=== PATIENT | female | born 1955 | race African-American/Black ===

== ENCOUNTER 2018-07-29 12:34 | Emergency (ER) | payer MEDICARE | END 2018-07-29 13:21 | disposition home or self-care (01) | LOC: ERS 12:34 | DX: H04.321 Acute dacryocystitis of right lacrimal passage (principal); K21.9 Gastro-esophageal reflux disease without esophagitis; I10 Essential (primary) hypertension; M19.90 Unspecified osteoarthritis, unspecified site; E11.9 Type 2 diabetes mellitus without complications; F17.210 Nicotine dependence, cigarettes, uncomplicated; Z86.73 Personal history of transient ischemic attack (TIA), and cerebral infarction without residual deficits | CPT/HCPCS: 99283 ==

== ENCOUNTER 2018-10-12 12:53 | Observation (INO) | payer MEDICARE ==
[2018-10-12 13:52] LABS: #Basophils 0.1 thou/uL (0.0-0.2); #Eosinphils 0.1 thou/uL (0.0-0.7); #Lymphocytes 1.8 thou/uL (1.20-3.40); #Monocytes 0.4 thou/uL (0.11-0.59); #Neutrophils 3.1 thou/uL (1.40-6.50); %Basophils 1.4 % (0.0-1.0); %Lymphocytes 33.2 % (21.0-51.0); %Monocytes 6.9 % (0.0-10.0); %Neutrophils 57.5 % (42.0-75.0); Hemoglobin 14.4 g/dL (12.0-16.0); Mean Corpuscular HGB CONC 32.5 g/dL (32.0-36.0); Mean Corpuscular Hemoglobin 32.7 pg (27.0-31.0); Mean Platelet Volume 7.3 fL (7.4-10.4); Platelet Count 393 thou/uL (130-400); RBC Distribution Width 12.3 % (11.5-14.5); Red Blood Cell (RBC) Count 4.42 mill/uL (4.20-5.40); White Blood Cell (WBC) Count 5.4 thou/uL (4.8-10.8)
--- NOTE | 2018-10-12 13:59 | RAD ---
PORTABLE CHEST: Date: 10-12-18 Provided Clinical History: Dyspnea. FINDINGS: Comparison 03-01-15. Examination is rotated, limiting assessment. The cardiac silhouette appears enlarged. Vascular calcif ication involves the aortic arch. The left lung base is poorly evaluated on the basis of rotation, ca rdiomegaly, and patient body habitus. There is no focal consolidation, pleural fluid, or pneumothorax apparent given this limitation. IMPRESSION: No definite evidence for an acute cardiopulmonary process. POS: [facility]
[2018-10-12] MEDS ORDERED: Acetaminophen 500 MG TAB ONE (14:08)
[2018-10-12 14:12] LABS: ALT (SGPT) 23 U/L (8-55); AST (SGOT) 30 U/L (5-34); Albumin 3.8 g/dL (3.4-4.8); Alkaline Phosphatase 82 U/L (40-150); Anion Gap 13 mmol/L (10-20); BUN (Urea Nitrogen) 11 mg/dL (9.8-20.1); Bilirubin, Total 0.4 mg/dL (0.2-1.2); Calc. Creatinine Clearance 0 mL/min (70-130); Calcium 9.9 mg/dL (7.8-10.44); Carbon Dioxide 26 mmol/L (23-31); Chloride 104 mmol/L (98-107); Estimated GFR-MDRD 76; Globulin 3.5 g/dL (2.4-3.5); Glucose 123 mg/dL (80-115); Potassium 3.6 mmol/L (3.5-5.1); Protein, Total 7.3 g/dL (6.0-8.3); Sodium 139 mmol/L (136-145)
--- NOTE | 2018-10-12 15:12 | CT ---
CT BRAIN WITHOUT CONTRAST: HISTORY: Headache. Dizziness. Weakness. COMPARISON: 03/10/2014 FINDINGS: There are changes of chronic small vessel ischemic disease and old infarctions in the basal ganglia a nd adam radiata, which were also seen on the previous exam. The ventricular size is appropriate, a nd the basilar cisterns are patent. No evidence of acute infarct, hemorrhage, midline shift, or abno rmal extraaxial fluid collections is seen. The bony calvarium is intact. The visualized paranasal s inuses and mastoid air cells are well aerated. IMPRESSION: No CT evidence of acute intracranial process. POS: [facility]
[2018-10-12 16:36] LABS: Bilirubin Negative (Negative); Blood, Urine Negative (Negative); Clarity CLEAR (Clear); Glucose, Urine (Dipstick) Negative (Negative); Leukocyte Negative (Negative); Nitrite Negative (Negative); Protein, Urine (Dipstick) Negative (Neg-Trace); Specific Gravity, Urine 1.009 (1.002-1.036)
[2018-10-12 17:56] LABS: Troponin I Less than 0.010 ng/mL (< 0.028)
[2018-10-12] MEDS ORDERED: Senokot S 8.6-50 MG TAB PO PRN (18:46)
[2018-10-12] MEDS ORDERED: Meclizine HCl 25 MG TAB PO PRN (18:46)
[2018-10-12] MEDS ORDERED: Acetaminophen 325 MG TAB PO PRN (18:46)
[2018-10-12] MEDS ORDERED: Ondansetron ODT 4 MG TAB PO PRN (18:46)
[2018-10-12] MEDS ORDERED: Acetaminophen 650 MG Suppository PR PRN (18:46)
[2018-10-12] MEDS ORDERED: Ondansetron PF 4 MG/2 ML Vial IVP PRN (18:46)
[2018-10-12 20:48] LABS: Troponin I Less than 0.010 ng/mL (< 0.028)
[2018-10-12] MEDS ORDERED: Famotidine 20 MG TAB PO SCH (21:00)
[2018-10-12] MEDS ORDERED: hydrALAZINE 20 MG/ML VIAL SLOW IVP PRN (21:53)
[2018-10-12] MEDS: tiZANidine HCl 4 MG TAB PO PRN (22:15)
[2018-10-12] MEDS ORDERED: Pregabalin 50 MG CAP PO SCH (22:15)
[2018-10-12] MEDS ORDERED: Valsartan 80 MG TAB PO SCH (22:15)
[2018-10-12] MEDS: HYDROcodone/Acetaminophen 7.5/325 mg Tablet PO PRN (23:15)
--- NOTE | 2018-10-13 01:30 | HP ---
PRIMARY CARE PHYSICIAN: [facility]. CHIEF COMPLAINT: Dizziness and headache. HISTORY OF PRESENT ILLNESS: This is a 63-year-old female, who presented to the emergency room with a frontal headache and some dizziness since this morning. She reports that she has chronic dizziness every day of the week, but they got specifically worse this morning and that her blood pressure at home was over 200 systolic, so she came in to be evaluated. In the emergency room, she was noted to have blood pressures ranging from the 165 to 177 over 90 to 100 range and did not have any more headache, but had persistent dizziness and felt like she was walking on a waterbed. She had some Tylenol given in the emergency room, has felt somewhat better, but then when she tried to get up, she continued to feel pretty dizzy and like she was walking on a waterbed and so, she is being put in observation in the hospital here. The patient has no family at the bedside and is not certain of her medical history, but I think she does have a history of some strokes in the past, though she does not know if she had any complications from those. Initially, it was thought that her primary care physician was in [place], but that actually is [facility] and I was able to elicit that she actually sees the [facility] in town here, so we will transfer care over to them in the morning. PAST MEDICAL HISTORY: 1. Hypertension. 2. Chronic low back pain. 3. Obesity. 4. Glaucoma. 5. Diabetes mellitus type 2, off all hypoglycemics. 6. Possible of stroke x2. PAST PSYCHIATRIC HISTORY: Depression. PAST SURGICAL HISTORY: 1. Bilateral tubal ligation. 2. Left total knee replacement. 3. Right carpal tunnel release. 4. Lumbar back surgery in 2017. SOCIAL HISTORY: The patient has a [id number] history of smoking. No alcohol or illicit drug use. 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 FAMILY HISTORY: Significant for coronary artery disease. Her mother of myocardial infarction at age 83. There is also significant family history of diabetes mellitus type 2. ALLERGIES: NO KNOWN DRUG ALLERGIES. CURRENT MEDICATIONS: The patient cannot remember her current medications and does not have a list with her. She knows she is on some sort of blood pressure medicine. REVIEW OF SYSTEMS: CONSTITUTIONAL: No fevers, no chills. EYES: She is chronically blind. No changes there. Did see the bright white light. HENT: No runny nose, congestion, or sore throat. CARDIOVASCULAR: No chest pain. No palpitations or racing heart. PULMONARY: No coughing, wheezing, or shortness of breath. GASTROINTESTINAL: No nausea or vomiting. She does have chronic gas pains, this is at baseline. No diarrhea or constipation. GENITOURINARY: No dysuria or hematuria. MUSCULOSKELETAL: No muscle aches or joint pains. SKIN: She has not noticed any skin changes. NEUROLOGIC: See HPI. She has not noticed any changes in her hearing. She has no numbness, tingling, or focal weakness. PHYSICAL EXAMINATION: VITAL SIGNS: Blood pressure 177/90, pulse 73, respirations 16, O2 saturation 95% on room air, temperature 99.4. GENERAL: This is a well-developed obese female, in no acute distress. HEENT: Pupils are bilaterally nonreactive, it is round on the left and irregular on the right, both of them are dilated and have thick white cataracts behind them. Oropharynx; clear without lesions, erythema, or exudate. NECK: Supple. No lymphadenopathy. No thyroid nodules or enlargement. No JVD. HEART: Regular rate and rhythm. No murmurs, rubs, or gallops. LUNGS: Clear to auscultation bilaterally. No wheezes, crackles, or rhonchi. ABDOMEN: Soft, nontender to palpation. Normoactive bowel sounds. No hepatosplenomegaly or other masses. EXTREMITIES: No clubbing, cyanosis, or edema. SKIN: No rashes or lesions noted. NEUROLOGIC: The patient has intact cranial nerves, except for her pupillary responses and vision and she has no facial droop. She has intact strength 5/5 in all 4 extremities. Has deep tendon reflexes are 2+ in all extremities. She has intact sensation throughout. No focal neurologic findings. PSYCHIATRIC: Alert and oriented x3. Normal mood and affect. LABORATORY DATA: CBC within normal limits except for an MCV of 101. Her complete metabolic panel is unremarkable. Troponin was negative x2. Urinalysis is negative. CT scan done in the emergency room showed no acute intracranial findings. No evidence of stroke or hemorrhage. Chest x-ray, I did review the chest x-ray done in the emergency room along with the radiologist's report. There is no cardiomegaly, no infiltrates, no acute cardiopulmonary process visualized. EKG; EKG in the emergency room shows normal sinus rhythm without any ST-segment changes and no arrhythmias. ASSESSMENT: 1. Hypertensive urgency at home, now with just elevated blood pressures. The elevation at home may be related to her headache, which has now resolved. We will resume her home blood pressure medications and observe her blood pressures overnight. 2. Dizziness, worse with standing up. The patient does have chronic dizziness possibly from previous strokes that she was told she had. Given her hypertension and risk factor, she is at risk for having had some sort basilar stroke causing significant worsening. I will also need to look for evidence of orthostasis. We will get some orthostatic blood pressures on the floor. We will start the patient on meclizine in the hospital and see if this improves her symptoms. 3. Diabetes mellitus, type 2 by history, off all medications. We will just check some fingerstick blood sugars to make sure they are not going high in the hospital. 4. Deep venous thrombosis prophylaxis. We will put the patient on sequential compression devices and Lovenox while in the hospital. 5. Previous history of stroke per the patient. We will resume her home aspirin. 6. Code status: The patient is a full code. Should she be incapacitated, her daughter would be her medical decision maker. Her daughter's name is Elizabeth Guy. Job ID: [id number]
--- NOTE | 2018-10-13 03:29 | PDOC.EVN ---
Event Note - Event Note Event Note: Residents contacted by Dr. Farhad Pena at approximately 2100 10/12/18, notified of admission accepted in error, pt at [facility], sees Dr. Etienne. Admitted for weakness, and hypertensive urgency reported at home. Dizziness present, reported chronic. CT head in ED neg, no focal weakness. pt reported as stable. Labs wnl, VS initally significant for elevated BP, since resolved. Accept care, continue to evaluate and monitor.
[2018-10-13 05:42] LABS: #Basophils 0.1 thou/uL (0.0-0.2); #Eosinphils 0.1 thou/uL (0.0-0.7); #Lymphocytes 2.9 thou/uL (1.20-3.40); #Monocytes 0.6 thou/uL (0.11-0.59); #Neutrophils 2.9 thou/uL (1.40-6.50); %Basophils 0.9 % (0.0-1.0); %Monocytes 9.1 % (0.0-10.0); %Neutrophils 44.1 % (42.0-75.0); Hemoglobin 13.8 g/dL (12.0-16.0); Mean Corpuscular HGB CONC 32.6 g/dL (32.0-36.0); Mean Corpuscular Hemoglobin 33.1 pg (27.0-31.0); Mean Platelet Volume 7.7 fL (7.4-10.4); Platelet Count 348 thou/uL (130-400); RBC Distribution Width 12.3 % (11.5-14.5); Red Blood Cell (RBC) Count 4.16 mill/uL (4.20-5.40); White Blood Cell (WBC) Count 6.7 thou/uL (4.8-10.8)
--- NOTE | 2018-10-13 05:46 | PDOC.FM ---
Addendum entered and electronically signed by Daphnie Marina MD 10/13/18 09:59: Dispo: will stay today, recheck potassium in the AM and continue to monitor blood pressure. Original Note: - Subjective Subjective: Patient feeling well this AM, headache is resolved. States she is not feeling dizzy lying in the bed, but she usually has to be up and moving around to feel dizzy "like she is on a water bed." Eating and drinking well. No complaints. - Objective Vital Signs & Weight: Vital Signs (12 hours) Temp Pulse Resp BP BP BP BP 10/13/18 03:18 98.4 F 64 18 162/72 H 10/12/18 23:43 98.2 F 77 16 149/67 H 10/12/18 21:33 191/88 H 10/12/18 18:42 98.2 F 68 20 217/96 H 210/104 H 184/87 H Pulse Ox 10/13/18 03:18 96 10/12/18 23:43 96 10/12/18 21:33 10/12/18 18:42 98 Weight Weight 86.727 kg Result Diagrams: 10/13/18 04:38 10/13/18 04:38 Phys Exam - Physical Examination Constitutional: NAD HEENT: moist MMs, oral pharynx no lesions Respiratory: no wheezing, clear to auscultation bilateral Cardiovascular: RRR, no significant murmur Gastrointestinal: soft, non-tender, no distention, positive bowel sounds Musculoskeletal: pulses present Neurological: moves all 4 limbs Psychiatric: normal affect Dx/Plan (1) Hypertensive urgency Code(s): I16.0 - HYPERTENSIVE URGENCY Status: Resolved (2) Dizziness Code(s): R42 - DIZZINESS AND GIDDINESS Status: Chronic (3) GERD (gastroesophageal reflux disease) Code(s): K21.9 - GASTRO-ESOPHAGEAL REFLUX DISEASE WITHOUT ESOPHAGITIS Status: Chronic (4) Tobacco abuse Code(s): Z72.0 - TOBACCO USE Status: Chronic (5) Chronic back pain Code(s): M54.9 - DORSALGIA, UNSPECIFIED; G89.29 - OTHER CHRONIC PAIN Status: Chronic (6) Glaucoma Code(s): H40.9 - UNSPECIFIED GLAUCOMA Status: Chronic Qualifiers: Laterality: bilateral (7) Hypertension Code(s): I10 - ESSENTIAL (PRIMARY) HYPERTENSION Status: Chronic (8) Type 2 diabetes mellitus Status: Chronic - Plan Plan: HTN Urgency at home, now with only elevated blood pressure -Headache has resolved -No cardiac events overnight, NSR -resumed valsartan home dose 80 mg daily Dizziness -worse with movement, she reports she feels unsteady but not like she is going to lose consciousness -Chronic dizziness from previous strokes -CT neg -EKG NSR -Trop negx3 -TSH wnl Chronic low back pain Obesity Glaucoma -blind DM2 -ACHS -Not on medication currently -A1C 5.3 Hx of strokex2 -patient reports she is not taking ASA 325 -resume ASA, encourage patient to take Hx of depression Tobacco abuse -45 pack year smoking hx -encourage cessation Hx of Gerd DVT ppx: SCD and lovenox Code status: Full code Daughter, Elizabeth Guy as decision maker if she becomes incapacitated Dispo: most likely home today Addendum - Attending - Attending Attestation Date/Time: 10/13/181943 I personally evaluated the patient and discussed the management with Dr. Mohan I agree with the History, Examination, Assessment and Plan documented above with any addition or exceptions noted below.Continue observation maximize BP control.
[2018-10-13 06:25] LABS: Anion Gap 10 mmol/L (10-20); BUN (Urea Nitrogen) 12 mg/dL (9.8-20.1); Calc. Creatinine Clearance 88 mL/min (70-130); Calcium 9.5 mg/dL (7.8-10.44); Carbon Dioxide 28 mmol/L (23-31); Chloride 104 mmol/L (98-107); Estimated GFR-MDRD 79; Glucose 86 mg/dL (80-115); Sodium 139 mmol/L (136-145)
[2018-10-13 07:15] LABS: Hemoglobin A1c 5.3 % (4.0-6.0)
[2018-10-13] MEDS ORDERED: Valsartan 80 MG TAB PO SCH ×4 (09:00→12:15)
[2018-10-13] MEDS: Aspirin 325 MG TAB PO SCH (09:23)
[2018-10-13] MEDS: Amlodipine 10 MG TAB PO SCH (09:23)
[2018-10-13] MEDS: Pregabalin 50 MG CAP PO SCH ×3 (09:24→21:23)
[2018-10-13] MEDS: Enoxaparin Sodium 40 MG/0.4 ML SYRINGE SC SCH (09:24)
[2018-10-13] MEDS: HYDROcodone/Acetaminophen 7.5/325 mg Tablet PO PRN ×2 (11:11→21:26)
[2018-10-13] MEDS ORDERED: Potassium Chloride 40 MEQ in Sodium Chloride 0.9% 250 ML 250 ML IVPB SCH (11:30)
[2018-10-13 11:36] LABS: Magnesium 2.1 mg/dL (1.6-2.6); Phosphorus 4.2 mg/dL (2.3-4.7)
[2018-10-13] MEDS: tiZANidine HCl 4 MG TAB PO PRN (13:48)
[2018-10-13] MEDS: Potassium Chloride 20 MEQ TAB PO SCH (17:47)
--- NOTE | 2018-10-14 06:17 | PDOC.FM ---
- Subjective Subjective: Patient feels well, denies dizziness. She was up walking with PT yesterday, reports no problems. She is desiring to go home. - Objective Vital Signs & Weight: Vital Signs (12 hours) Temp Pulse Resp BP BP Pulse Ox 10/14/18 03:55 70 18 178/75 H 95 10/13/18 23:45 97.4 F L 68 21 H 177/74 H 96 10/13/18 19:23 98.2 F 70 16 170/72 H 95 Weight Weight 86.727 kg I&O: 10/12/18 10/13/18 10/14/18 06:59 06:59 06:59 Intake Total 340 1003 Balance 340 1003 Result Diagrams: 10/13/18 04:38 10/14/18 04:52 Phys Exam - Physical Examination Constitutional: NAD HEENT: moist MMs Respiratory: no wheezing, clear to auscultation bilateral Cardiovascular: RRR, no significant murmur Gastrointestinal: soft, non-tender, positive bowel sounds Musculoskeletal: no edema, pulses present Neurological: non-focal, moves all 4 limbs Psychiatric: normal affect, A&O x 3 Dx/Plan (1) Hypertensive urgency Code(s): I16.0 - HYPERTENSIVE URGENCY Status: Resolved (2) Dizziness Code(s): R42 - DIZZINESS AND GIDDINESS Status: Chronic (3) GERD (gastroesophageal reflux disease) Code(s): K21.9 - GASTRO-ESOPHAGEAL REFLUX DISEASE WITHOUT ESOPHAGITIS Status: Chronic (4) Tobacco abuse Code(s): Z72.0 - TOBACCO USE Status: Chronic (5) Chronic back pain Code(s): M54.9 - DORSALGIA, UNSPECIFIED; G89.29 - OTHER CHRONIC PAIN Status: Chronic (6) Glaucoma Code(s): H40.9 - UNSPECIFIED GLAUCOMA Status: Chronic Qualifiers: Laterality: bilateral (7) Hypertension Code(s): I10 - ESSENTIAL (PRIMARY) HYPERTENSION Status: Chronic (8) Type 2 diabetes mellitus Status: Chronic - Plan Plan: HTN Urgency at home, now with only elevated blood pressure -Headache has resolved -No cardiac events overnight, NSR - increased home valsartan 160 mg daily, continued amlodipine 10 mg daily - blood pressures still 170s overnight, started HCTZ today Dizziness, resolved -Chronic dizziness from previous strokes -CT neg -EKG NSR -Trop negx3 -TSH wnl -Walked with PT yesterday Hypokalemia, resolved -being monitored and replaced Chronic low back pain Obesity Glaucoma -blind DM2 -ACHS -Not on medication currently -A1C 5.3 Hx of strokex2 -patient reports she is not taking ASA 325 -resume ASA, encourage patient to take Hx of depression -not on treatment Tobacco abuse -45 pack year smoking hx, current smoker -Patient has no interest in quitting at this time -encouraged cessation Hx of Gerd DVT ppx: SCD and lovenox Code status: Full code Daughter, Elizabeth Guy as decision maker if she becomes incapacitated Dispo: most likely home this afternoon if blood pressures improve with additional HCTZ Addendum - Attending - Attending Attestation Date/Time: 10/14/18 [id number] I personally evaluated the patient and discussed the management with Dr. Jesse Marina I agree with the History, Examination, Assessment and Plan documented above with any addition or exceptions noted below. BP improved asymptomatic and feeling better. patient desire to go home if stable through day ok home later this pm and f/u clinic continue to monitor BP.
[2018-10-14 06:18] LABS: Anion Gap 12 mmol/L (10-20); BUN (Urea Nitrogen) 15 mg/dL (9.8-20.1); Calc. Creatinine Clearance 83 mL/min (70-130); Calcium 9.1 mg/dL (7.8-10.44); Carbon Dioxide 23 mmol/L (23-31); Chloride 107 mmol/L (98-107); Estimated GFR-MDRD 74; Glucose 95 mg/dL (80-115); Potassium 3.8 mmol/L (3.5-5.1); Sodium 138 mmol/L (136-145)
[2018-10-14] MEDS: HYDROcodone/Acetaminophen 7.5/325 mg Tablet PO PRN ×2 (07:54→20:51)
[2018-10-14] MEDS: Enoxaparin Sodium 40 MG/0.4 ML SYRINGE SC SCH (07:55)
[2018-10-14] MEDS: Potassium Chloride 20 MEQ TAB PO SCH ×2 (07:55→16:00)
[2018-10-14] MEDS: Amlodipine 10 MG TAB PO SCH (07:56)
[2018-10-14] MEDS: Aspirin 325 MG TAB PO SCH (07:57)
[2018-10-14] MEDS: Pregabalin 50 MG CAP PO SCH ×3 (07:57→20:51)
[2018-10-14] MEDS ORDERED: Valsartan 80 MG TAB PO SCH (09:00)
[2018-10-14] MEDS ORDERED: Hydrochlorothiazide 25 MG TAB PO SCH ×2 (09:00→16:30)
[2018-10-14] MEDS ORDERED: hydrOXYzine 25 MG TAB PO PRN (17:23)
[2018-10-14] MEDS ORDERED: Melatonin 3 MG TAB PO PRN (17:24)
--- NOTE | 2018-10-15 05:24 | PDOC.FM ---
- Subjective Subjective: Patient feeling well this AM, denies dizziness, CP or SOB. Wanting to go home. - Objective Vital Signs & Weight: Vital Signs (12 hours) Temp Pulse Resp BP Pulse Ox 10/15/18 05:12 97.8 F 69 12 162/71 H 95 10/14/18 19:30 98.1 F 92 20 158/90 H 95 Weight Weight 83.37 kg I&O: 10/13/18 10/14/18 10/15/18 06:59 06:59 06:59 Intake Total 340 1003 1680 Balance 340 1003 1680 Result Diagrams: 10/13/18 04:38 10/15/18 04:46 Phys Exam - Physical Examination Constitutional: NAD Respiratory: no wheezing, clear to auscultation bilateral Cardiovascular: RRR, no significant murmur Gastrointestinal: soft, non-tender, no distention, positive bowel sounds Musculoskeletal: no edema, pulses present Psychiatric: normal affect, A&O x 3 Skin: normal turgor Dx/Plan (1) Hypertensive urgency Code(s): I16.0 - HYPERTENSIVE URGENCY Status: Resolved (2) Dizziness Code(s): R42 - DIZZINESS AND GIDDINESS Status: Chronic (3) GERD (gastroesophageal reflux disease) Code(s): K21.9 - GASTRO-ESOPHAGEAL REFLUX DISEASE WITHOUT ESOPHAGITIS Status: Chronic (4) Tobacco abuse Code(s): Z72.0 - TOBACCO USE Status: Chronic (5) Chronic back pain Code(s): M54.9 - DORSALGIA, UNSPECIFIED; G89.29 - OTHER CHRONIC PAIN Status: Chronic (6) Glaucoma Code(s): H40.9 - UNSPECIFIED GLAUCOMA Status: Chronic Qualifiers: Laterality: bilateral (7) Hypertension Code(s): I10 - ESSENTIAL (PRIMARY) HYPERTENSION Status: Chronic (8) Type 2 diabetes mellitus Status: Chronic - Plan Plan: HTN Urgency at home, now with only elevated blood pressure -Headache has resolved -No cardiac events overnight, NSR - increased home valsartan 240 mg daily, continued amlodipine 10 mg daily - added HCTZ 25 mg daily Dizziness, resolved -Chronic dizziness from previous strokes -CT neg -EKG NSR -Trop negx3 -TSH wnl -meclizine PRN -Walked with PT yesterday Hypokalemia, resolved -being monitored and replaced Chronic low back pain Obesity Glaucoma -blind DM2, diet controlled -ACHS, glucose well controlled -Not on medication currently -A1C 5.3 Hx of strokex2 -patient reports she is not taking ASA 325 -resume ASA, encourage patient to take Hx of depression -not on treatment Tobacco abuse -45 pack year smoking hx, current smoker -Patient has no interest in quitting at this time -encouraged cessation Hx of Gerd Insomnia -melatonin Anxiety -atarax PRN DVT ppx: SCD and lovenox Code status: Full code Daughter, Elizabeth Guy as decision maker if she becomes incapacitated Dispo: most likely home this afternoon if blood pressures improved Addendum - Attending - Attending Attestation Date/Time: 10/15/18 [id number] I personally evaluated the patient and discussed the management with Dr. Sanjuanita Marina I agree with the History, Examination, Assessment and Plan documented above with any addition or exceptions noted below.Rec JNC 8 recommendations for age adjusted BP goal is 150/90 as [facility] for BP reduction, note some right verse left arm BP discrepancy. Discussed watermelon inspector goal and short term outpatient f/u with patient
[2018-10-15] MEDS: HYDROcodone/Acetaminophen 7.5/325 mg Tablet PO PRN (05:40)
[2018-10-15] MEDS ORDERED: Amlodipine 10 MG TAB PO SCH ×2 (06:36→09:00)
[2018-10-15] MEDS ORDERED: Valsartan 80 MG TAB PO SCH ×3 (06:36→09:00)
[2018-10-15] MEDS ORDERED: Hydrochlorothiazide 25 MG TAB PO SCH ×3 (06:40→09:00)
[2018-10-15 06:46] LABS: Anion Gap 14 mmol/L (10-20); BUN (Urea Nitrogen) 20 mg/dL (9.8-20.1); Calc. Creatinine Clearance 81 mL/min (70-130); Calcium 9.8 mg/dL (7.8-10.44); Carbon Dioxide 22 mmol/L (23-31); Chloride 108 mmol/L (98-107); Estimated GFR-MDRD 75; Glucose 114 mg/dL (80-115); Potassium 3.9 mmol/L (3.5-5.1); Sodium 140 mmol/L (136-145)
[2018-10-15] MEDS: Potassium Chloride 20 MEQ TAB PO SCH (09:05)
[2018-10-15] MEDS: Aspirin 325 MG TAB PO SCH (09:05)
[2018-10-15] MEDS: Enoxaparin Sodium 40 MG/0.4 ML SYRINGE SC SCH (09:06)
[2018-10-15] MEDS: Pregabalin 50 MG CAP PO SCH ×2 (09:06→14:32)
[2018-10-15 12:14] VITALS: BP 118/72; TEMP 98.3
--- NOTE | 2018-10-16 13:48 | DIS ---
DATE OF ADMISSION: 10/12/2018 DATE OF DISCHARGE: 10/15/2018 RESIDENT: Daphnie Marina MD ADMITTING ATTENDING: Viral Starkey MD DISCHARGE ATTENDING: Viral Starkey MD CONSULTS: None. PROCEDURES: 1. Brain CT on 10/12/2018, no evidence of acute intracranial process. 2. Chest x-ray on 10/12/2018, cardiomegaly. No acute cardiopulmonary process. PRIMARY DIAGNOSES: 1. Hypertensive urgency, resolved. 2. Hypertension. SECONDARY DIAGNOSES: 1. Hypokalemia. 2. Chronic low back pain. 3. Obesity. 4. Glaucoma. 5. Diabetes type 2, diet controlled. 6. History of two prior strokes. 7. History of depression. 8. Tobacco abuse. 9. Gastroesophageal reflux disease. 10. Insomnia. 11. Anxiety. 12. Blindness 2/2 Glaucoma DISCHARGE MEDICATIONS: 1. Amlodipine 10 mg oral daily. 2. Aspirin 81 mg p.o. daily. 3. Meclizine 25 mg p.o. q.8 hours p.r.n. for dizziness. 4. Hydrochlorothiazide 25 mg oral daily. 5. Valsartan 240 mg p.o. daily. 6. Lyrica 50 mg p.o. t.i.d. 7. Esomeprazole 80 mg oral daily. 8. Garrison 7.5/325 tablet one tablet p.o. q.8 hours p.r.n. 9. Tizanidine 2 mg p.o. q.12 hours p.r.n. for foot cramps. DISCONTINUED MEDICATIONS: Valsartan 80 mg p.o. daily. HISTORY OF PRESENT ILLNESS/HOSPITAL COURSE: The patient is a 63-year-old female with blindness who presented to the ER with frontal headache and some dizziness. She reports she has chronic dizziness, but it worsened that morning and her blood pressure at home was over 200 systolic at home. She came in to be evaluated. In the ED, she was noted to have blood pressures ranging from 160s to 170s over 90s to 100, but denied any more headache, but had persistent dizziness and felt like she was "walking in a waterbed." She states that she goes to [facility]. The patient was sent to cardiac telemetry and maintained on normal sinus rhythm. Her blood pressure is continued to be elevated. She was restarted on her home medication, her valsartan was increased, and hydrochlorothiazide was added to her daily regimen. Her dizziness has resolved. Her hypokalemia resolved with oral potassium. Her A1c was 5.3, the patient's diabetes continues to be well controlled with diet. The patient also reported she had a history of stroke, but was not taking any aspirin. She resumed her aspirin 81 mg during her stay. The patient was encouraged strongly to quit smoking, but had no interest in quitting at this time. The patient was discharged with blood pressures in the 140s over 70s and last blood pressure that was 118/72. DISPOSITION: Stable. DISCHARGE INSTRUCTIONS: 1. Location: Home. 2. Diet: Heart-healthy consistent carb. 3. Activity: As tolerated. 4. Followup: With Dr. Etienne at [facility] on Friday. Job ID: [id number] MTDD
== END 2018-10-15 15:01 | disposition home or self-care (01) ==
LOC: ERS 12:53 → 2SW 15:50
PROVIDERS: ADMIT Internal Medicine; ATTEND Internal Medicine
DX: I16.0 Hypertensive urgency (principal); I10 Essential (primary) hypertension; E87.6 Hypokalemia; G89.29 Other chronic pain; M54.5 Low back pain; R42 Dizziness and giddiness; E11.9 Type 2 diabetes mellitus without complications; F32.9 Major depressive disorder, single episode, unspecified; F17.210 Nicotine dependence, cigarettes, uncomplicated; H40.9 Unspecified glaucoma; H54.8 Legal blindness, as defined in USA; K21.9 Gastro-esophageal reflux disease without esophagitis; G47.00 Insomnia, unspecified; E66.9 Obesity, unspecified; Z68.31 Body mass index [BMI] 31.0-31.9, adult; Z86.73 Personal history of transient ischemic attack (TIA), and cerebral infarction without residual deficits; Z79.899 Other long term (current) drug therapy
CPT/HCPCS: 70450; 71045; 80048 ×3; 80053; 81003; 82962 ×4; 83036; 83735; 84100; 84443; 84484 ×2; 85025 ×2; 93005; 96365; 96366; 96372 ×2; 96375; 97116; 97139 ×5; 97530; 99285; G0378 ×3; 36415; 36416; J0360; J1650; J3480; J7050

== ENCOUNTER 2019-05-12 14:33 | Inpatient (IN) | payer MEDICARE ==
[2019-05-12] MEDS ORDERED: Naloxone HCl 0.4 mg/ml Vial ONE (14:45)
--- NOTE | 2019-05-12 15:23 | CT ---
CT Head without IV contrast COMPARISON: 10/12/2018 HISTORY: Altered mental status TECHNIQUE: Axial CT imaging at 5 mm intervals from vertex through skull base without contrast FINDINGS: There is no evidence of an acute infarction, hemorrhage, mass effect, or midline shift. There is decr eased attenuation seen in the periventricular white matter which is nonspecific but likely attributable to chronic small vessel ischemic changes. Again noted are low-density foci within each i nternal capsule likely due to remote lacunar infarctions. There is mild cerebral volume loss. The ventricular system is normal in size, shape, and position for the degree of sulcal atrophy. Visualized paranasal sinuses are clear. Osseous structures appear intact. CT head is stable from prior exam. IMPRESSION: 1. No acute intracranial abnormality demonstrated. 2. Stable chronic small vessel ischemic changes and cerebral volume loss with stable remote lacunar i nfarctions in each basal ganglia.
[2019-05-12 15:35] LABS: ALT (SGPT) 22 U/L (8-55); AST (SGOT) 26 U/L (5-34); Albumin 3.8 g/dL (3.4-4.8); Alkaline Phosphatase 92 U/L (40-150); Anion Gap 10 mmol/L (10-20); BUN (Urea Nitrogen) 13 mg/dL (9.8-20.1); Bilirubin, Total 0.4 mg/dL (0.2-1.2); CK (CPK) 117 U/L (29-168); Calc. Creatinine Clearance 0 mL/min (70-130); Calcium 9.8 mg/dL (7.8-10.44); Carbon Dioxide 25 mmol/L (23-31); Chloride 106 mmol/L (98-107); Estimated GFR-MDRD 76; Globulin 3.5 g/dL (2.4-3.5); Glucose 121 mg/dL (80-115); Magnesium 2.1 mg/dL (1.6-2.6); Potassium 3.2 mmol/L (3.5-5.1); Protein, Total 7.3 g/dL (6.0-8.3); Sodium 138 mmol/L (136-145)
--- NOTE | 2019-05-12 15:46 | RAD ---
PORTABLE CHEST: Date: 05/12/19 INDICATION: History of stroke. FINDINGS: Lungs are clear. Heart and mediastinum unremarkable. No evidence of vascular congestion. IMPRESSION: No acute lung process. POS: [facility]
[2019-05-12 15:53] LABS: #Eosinphils 0.1 thou/uL (0.0-0.7); #Lymphocytes 2.5 thou/uL (1.20-3.40); #Monocytes 0.7 thou/uL (0.11-0.59); #Neutrophils 3.3 thou/uL (1.40-6.50); %Basophils 0.3 % (0.0-1.0); %Eosinophils 1.2 % (0.0-10.0); %Lymphocytes 37.9 % (21.0-51.0); %Monocytes 10.7 % (0.0-10.0); Hemoglobin 14.5 g/dL (12.0-16.0); Mean Corpuscular HGB CONC 32.7 g/dL (32.0-36.0); Mean Corpuscular Hemoglobin 31.7 pg (27.0-31.0); Mean Corpuscular Volume 96.9 fL (78.0-98.0); Mean Platelet Volume 8.2 fL (7.4-10.4); Platelet Count 291 thou/uL (130-400); RBC Distribution Width 12.4 % (11.5-14.5); Red Blood Cell (RBC) Count 4.57 mill/uL (4.20-5.40); White Blood Cell (WBC) Count 6.6 thou/uL (4.8-10.8)
[2019-05-12] MEDS ORDERED: Aspirin Chewable 81 MG TAB ONE (16:18)
--- NOTE | 2019-05-12 17:23 | PDOC.FPRHP ---
- History of Present Illness Chief Complaint: right sided weakness History of Present Illness: Polly Guy is a 63 year old F with a PMH of Glaucoma, Chronic back pain on daily narcotics, OA, HTN, hx of TIA, who presented to the ED with a several day history of weakness, worse on the right side. Patient lives with her daughter who states that she decided to bring her today because she was unable to hold herself up. Daughter denies that patient had had any fever, chills, chest pain, dyspnea, respiratory distress, n/v, abdominal pain, urinary symptoms. Patient's PCP is Dr. Story and daughter states that she has been receiving vicodin for chronic pain. Last script was 90 pills and daughter states that she checked the bottle and there was only about 20 pills remaining. Daughter states that she was unaware that patient was taking so many pain medications. ERMD states that patient seemed tired and was not really responsive to questions. In the ED, she was given 0.4 mg of Narcan and 1 L NS as well as aspirin. After receiving narcan, the patient woke up more and was more responsive to questions. CT brain was done in ED showing no acute findings, small vessel ischemic changes, stable remote lacunar infarcts in each basal ganglia. EKG showed NSR with PACs, no ST changes. CXR showed no acute findings. - Allergies/Adverse Reactions Allergies Allergy/AdvReac Type Severity Reaction Status Date / Time No Known Allergies Allergy Verified 10/12/18 21:25 - Home Medications Medication Instructions Recorded Confirmed Type Pregabalin [Lyrica] 100 mg PO BID 03/10/14 05/12/19 History HYDROcodone/Acetaminophen [Mingus 1 each PO Q8H PRN 10/12/18 05/12/19 History 7.5-325 Tablet] tiZANidine HCl [Tizanidine HCl] 2 mg PO Q8H PRN 10/12/18 05/12/19 History Amlodipine [Norvasc] 5 mg PO DAILY 05/12/19 05/12/19 History Losartan Potassium [Cozaar] 50 mg PO DAILY 05/12/19 05/12/19 History - History PMHx: Glaucoma, HTN, chronic pain on daily narcotics, OA, GERD PSHx: carpal tunnel syndrome, tubal ligation, left knee replacement FHx: noncontributory Social: smokes 1.5 ppd, denies alcohol or drug use - Review of Systems General: denies: fever/chills, fatigue Eyes: denies: eye pain, vision changes ENT: denies: nasal congestion, rhinorrhea Respiratory: denies: cough, congestion, shortness of breath Cardiovascular: denies: chest pain, palpitation Gastrointestinal: denies: nausea, vomiting, diarrhea, constipation Genitourinary: denies: incontinence, dysuria, discharge Skin: denies: rashes, lesions Musculoskeletal: reports: pain, arthritis/arthralgias. denies: stiffness, swelling Neurological: reports: weakness. denies: numbness, syncope, seizure - Vital signs BP: 139/76 HR: 96 RR: 18 Pox: 96% on RA Wt: 86 kg - Physical Exam Constitutional: NAD, awake, alert and oriented, well developed HEENT: normocephalic and atraumatic, PERRLA, EOMI, conjunctiva clear, no scleral icterus, grossly normal hearing, normal nasal mucosa, MMM Neck: supple, FROM, no JVD Chest: no-tender to palpation, no lesions Heart: RRR, normal S1/S2, no murmurs/rubs/gallops Lungs: CTAB, no respiratory distress, good air movement, no rales/rhonchi Abdomen: soft, non-tender, bowel sounds present Musculoskeletal: normal structure, normal tone -Musculoskeletal: FROM in upper and lower extremities Neurological: CN II-XII intact, normal sensation -Neurological: right UE 4/5 strength, left UE 5/5, 5/5 in bilateral LEs Skin: no rash/lesions, good turgor, capillary refill <2 seconds Heme/Lymphatic: no unusual bruising or bleeding, no purpura Psychiatric: normal mood and affect, intact recent and remote memory FMR H&P: Results - Labs Result Diagrams: 05/13/19 04:55 05/14/19 12:34 Lab results: WBC 6.6 thou/uL (4.8-10.8) 05/12/19 15:43 Hgb 14.5 g/dL (12.0-16.0) 05/12/19 15:43 Hct 44.3 % (36.0-47.0) 05/12/19 15:43 MCV 96.9 fL (78.0-98.0) 05/12/19 15:43 Plt Count 291 thou/uL (130-400) 05/12/19 15:43 Neutrophils % 50.0 % (42.0-75.0) 05/12/19 15:43 Sodium 138 mmol/L (136-145) 05/12/19 15:04 Potassium 3.2 mmol/L (3.5-5.1) L 05/12/19 15:04 Chloride 106 mmol/L (98-107) 05/12/19 15:04 Carbon Dioxide 25 mmol/L (23-31) 05/12/19 15:04 BUN 13 mg/dL (9.8-20.1) 05/12/19 15:04 Creatinine 0.90 mg/dL (0.6-1.1) 05/12/19 15:04 Glucose 121 mg/dL (80-115) H 05/12/19 15:04 Calcium 9.8 mg/dL (7.8-10.44) 05/12/19 15:04 Total Bilirubin 0.4 mg/dL (0.2-1.2) 05/12/19 15:04 AST 26 U/L (5-34) 05/12/19 15:04 ALT 22 U/L (8-55) 05/12/19 15:04 Alkaline Phosphatase 92 U/L (40-150) 05/12/19 15:04 Creatine Kinase 117 U/L (29-168) 05/12/19 15:04 B-Natriuretic Peptide 53.3 pg/mL (0-100) 05/12/19 15:42 Serum Total Protein 7.3 g/dL (6.0-8.3) 05/12/19 15:04 Albumin 3.8 g/dL (3.4-4.8) 05/12/19 15:04 - EKG Interpretation EKG: EKG: NSR with PACs, no ST changes - Radiology Interpretation CT scan - head Status: image reviewed by me, report reviewed by me (no acute findings, stable chronic small vessel ischemic change, stable remote lacunar infarcts in each basal ganglia) Chest x-ray Status: image reviewed by me, report reviewed by me (no acute findings) FMR H&P: A/P - Problem List (1) Right sided weakness Current Visit: Yes Status: Acute Code(s): R53.1 - WEAKNESS (2) TIA (transient ischemic attack) Current Visit: Yes Status: Acute Code(s): G45.9 - TRANSIENT CEREBRAL ISCHEMIC ATTACK, UNSPECIFIED (3) Opioid abuse Current Visit: Yes Status: Acute Code(s): F11.10 - OPIOID ABUSE, UNCOMPLICATED (4) Chronic back pain Current Visit: No Status: Chronic Code(s): M54.9 - DORSALGIA, UNSPECIFIED; G89.29 - OTHER CHRONIC PAIN (5) GERD (gastroesophageal reflux disease) Current Visit: No Status: Chronic Code(s): K21.9 - GASTRO-ESOPHAGEAL REFLUX DISEASE WITHOUT ESOPHAGITIS (6) Glaucoma Current Visit: No Status: Chronic Code(s): H40.9 - UNSPECIFIED GLAUCOMA Qualifiers: Laterality: bilateral (7) Hyperlipidemia Current Visit: No Status: Chronic Code(s): E78.5 - HYPERLIPIDEMIA, UNSPECIFIED (8) Hypertension Current Visit: No Status: Chronic Code(s): I10 - ESSENTIAL (PRIMARY) HYPERTENSION (9) Tobacco abuse Current Visit: No Status: Chronic Code(s): Z72.0 - TOBACCO USE - Plan 1) Right sided weakness: R/o TIA vs CVA - pt and family are poor historians, greater than 48 hours of generalized weakness worse on right - no acute change in functional or mental status - known history of substantial Vicodin use - prescribed 90 tabs of vicodin 1-2 weeks ago, daughter states about only 20 tabs remaining - likely that weakness is 2/2 opioid abuse - symptoms improved with narcan - s/p aspirin, narcan, 1 L NS in ED - CT brain showed chronic ischemic changes - checking brain MRI - continue aspirin, stating statin - checking carotid doppler 2) Opioid abuse - based on history from daughter, possibly has taken a significant amount of vicodin over the last week and a half - patient is protecting airway, no mioisis, normal HR and RR - will hold pain medications at this time - will give narcan if needed 2) HTN - will med rec and restart home medications after 24 hours - will allow for permissive hypertension 3) GERD - home meds 4) OA - holding pain meds Code Status: FULL CODE Dispo: Obs/Stroke, anticipate hospital stay < 48 hours Addendum - Attending - Attending Attestation Date/Time: 05/12/191924 I personally evaluated the patient and discussed the management with Dr. Pineda I agree with the History, Examination, Assessment and Plan documented above with any addition or exceptions noted below. 63 yo female admitted for narcotic intoxication. Rule out TIA, however symptoms are more globally related. Patient returned to baseline after anti-opiod. Monitor. Adjust medications. Argelia
[2019-05-12 18:49] LABS: Acetaminophen Less than 6.0 mcg/mL (10.0-30.0); Alcohol Less than 10 mg/dL (Less than 10); Salicylate Less than 8.0 mg/dL (15.0-30.0)
[2019-05-12 19:08] VITALS: BMI 35.1
[2019-05-12 19:26] LABS: Troponin I Less than 0.010 ng/mL (< 0.028)
[2019-05-12] MEDS: Acetaminophen 325 MG TAB PO PRN (20:39)
[2019-05-12] MEDS: Rosuvastatin 20 MG TAB PO SCH (20:40)
[2019-05-12] MEDS: Famotidine 20 MG TAB PO SCH (20:40)
[2019-05-12 22:15] LABS: Troponin I Less than 0.010 ng/mL (< 0.028)
[2019-05-13 05:27] LABS: Hemoglobin 13.4 g/dL (12.0-16.0); Lymphocytes 35 % (21-51); MDiff Complete? YES; Mean Corpuscular HGB CONC 33.2 g/dL (32.0-36.0); Mean Corpuscular Hemoglobin 32.5 pg (27.0-31.0); Mean Corpuscular Volume 97.8 fL (78.0-98.0); Mean Platelet Volume 7.8 fL (7.4-10.4); Monocytes 1 % (0-10); Neutrophil 64 % (42-75); Platelet Count 308 thou/uL (130-400); Platelet Morphology Comment Appears Adequate; RBC Distribution Width 12.3 % (11.5-14.5); RBC Morphology Normal; Red Blood Cell (RBC) Count 4.14 mill/uL (4.20-5.40); White Blood Cell (WBC) Count 6.7 thou/uL (4.8-10.8)
[2019-05-13 05:36] LABS: ALT (SGPT) 21 U/L (8-55); AST (SGOT) 25 U/L (5-34); Albumin 3.5 g/dL (3.4-4.8); Alkaline Phosphatase 89 U/L (40-150); Anion Gap 10 mmol/L (10-20); BUN (Urea Nitrogen) 11 mg/dL (9.8-20.1); Bilirubin, Total 0.5 mg/dL (0.2-1.2); Calc. Creatinine Clearance 98 mL/min (70-130); Calcium 9.3 mg/dL (7.8-10.44); Carbon Dioxide 25 mmol/L (23-31); Cardiac Risk 3.2 (Less than 4.5); Chloride 106 mmol/L (98-107); Cholesterol 180 mg/dl (< 200 Desired); Estimated GFR-MDRD 88; Globulin 3.3 g/dL (2.4-3.5); Glucose 90 mg/dL (80-115); HDL Cholesterol 56 mg/dL (>60 Neg Risk); LDL Cholesterol, Calculated 100 mg/dL; Protein, Total 6.8 g/dL (6.0-8.3); Sodium 138 mmol/L (136-145); Triglycerides 118 mg/dL (Less than 150)
[2019-05-13 05:38] LABS: Potassium 2.9 mmol/L (3.5-5.1)
--- NOTE | 2019-05-13 05:51 | PDOC.FM ---
- Subjective Subjective: Patient was alert, awake and A&Ox3 at the time and evaluation - very pleasant. She denied any overnight events, and complained only of a mild headache while denying chest pain, shortness of breath, abdominal pain, or difficulty voiding or passing stool. She is an admittedly poor historian and her daughter was not present to assist with the HPI. - Objective Vital Signs & Weight: Vital Signs (12 hours) Temp Pulse Resp BP BP Pulse Ox 05/13/19 04:00 98.3 F 53 L 16 146/69 H 97 05/12/19 23:25 98.4 F 58 L 16 167/82 H 96 05/12/19 18:30 99.6 F 67 16 167/89 H 98 Weight Weight 87.09 kg I&O: 05/11/19 05/12/19 05/13/19 06:59 06:59 06:59 Intake Total 200 Balance 200 Result Diagrams: 05/13/19 04:55 05/13/19 04:54 Phys Exam - Physical Examination Constitutional: NAD HEENT: moist MMs, sclera anicteric, oral pharynx no lesions Dilated left pupil Neck: no nodes, supple, full ROM Respiratory: no wheezing, no rales, no rhonchi, clear to auscultation bilateral Cardiovascular: RRR, no significant murmur, no rub Gastrointestinal: soft, non-tender, no distention, positive bowel sounds Musculoskeletal: no edema, pulses present Neurological: moves all 4 limbs Left sided facial droop with possible deviation of tongue Strength difficult to assess, seemd more prominent on left Lymphatic: no nodes Psychiatric: A&O x 3 Skin: no rash Dx/Plan (1) Opioid abuse Code(s): F11.10 - OPIOID ABUSE, UNCOMPLICATED Status: Acute (2) TIA (transient ischemic attack) Code(s): G45.9 - TRANSIENT CEREBRAL ISCHEMIC ATTACK, UNSPECIFIED Status: Acute (3) Chronic back pain Code(s): M54.9 - DORSALGIA, UNSPECIFIED; G89.29 - OTHER CHRONIC PAIN Status: Chronic - Plan Plan: 1) Right-Sided Weakness: R/o TIA vs CVA -Patient and daughter are admittedly poor historians, >48H of generalized weakness worse on right but difficult to assess fully -No acute change in functional or mental status -Known history of substantial Vicodin use -Prescribed 90 tabs of Vicodin 1-2 weeks ago, daughter stated about only 20 tabs remaining -Weakness is likely chronic and/or 2/2 opioid abuse -Symptoms improved with Narcan -SP aspirin, narcan, 1 L NS in ED -Physical exam noted for diffuse weakness and left dilated pupil -CT brain showed chronic ischemic changes -Carotid Doppler: Pending -Brain MRI: Pending -Continue aspirin, statin 2) Opioid Abuse -Based on history from daughter, possibly has taken a significant amount of Vicodin over past 2 weeks -Patient is protecting airway, no mioisis, normal HR and RR -Continue to hold pain medications -Will give narcan if needed 2) HTN -BP on 05/13/19 was 146/69 -Restart home medications after 24 hours -Allow for permissive hypertension 3) GERD -Restart home medication regimen 4) OA -Continue to hold pain medications Code Status: FULL CODE Diet: Heart Healthy Activity: Bed rest Dispo: Patient currently admitted to Obs/Stroke Unit with carotid doppler pending. Coordinate with daughter and discuss plan of care.
[2019-05-13] MEDS ORDERED: Potassium Chloride 20 MEQ TAB PO SCH (06:00)
[2019-05-13] MEDS ORDERED: Lorazepam 1 MG TAB PO ONE (08:54)
[2019-05-13] MEDS: Enoxaparin Sodium 40 MG/0.4 ML SYRINGE SC SCH (09:34)
[2019-05-13] MEDS: Acetaminophen 325 MG TAB PO PRN (09:34)
[2019-05-13] MEDS: Famotidine 20 MG TAB PO SCH ×2 (09:34→19:54)
[2019-05-13] MEDS: Aspirin 81 mg Enteric Coated Tablet PO SCH (09:34)
--- NOTE | 2019-05-13 12:16 | CT ---
CT ANGIOGRAM OF THE HEAD: DATE: 05/13/2019. COMPARISON: None. HISTORY: Transient ischemic attack versus stroke. Altered mental status. TECHNIQUE: Axial CT imaging at 1.25 mm intervals from the skull base through the vertex with IV contrast using C T angiogram protocol with coronal and sagittal 3D reformatted imaging. FINDINGS: The distal vertebral arteries are patent bilaterally. The basilar artery is relatively hypoplastic b ut patent with no hemodynamically significant stenosis. There is a patent posterior communicating ar manuel on the right. The origin of the right posterior cerebral artery is felt to most likely be in nature. There is no hemodynamically significant stenosis, vascular occlusion, or sacular aneurys m appreciated involving the posterior circulation. Imaged distal ICA is patent bilaterally. There is mild atherosclerotic calcification of the cavernou s carotid arteries bilaterally. The M1 segment is patent bilaterally. The MCA bifurcation appears grossly unremarkable bilaterally. The A1 segment is patent bilaterally and distal KASSANDRA branches appear grossly unremarkable. No central arterial occlusion is seen involving the MCA branches on either side. Review of the osseous structures demonstrates no worrisome lytic or blastic bone lesions. Imaged par anasal sinuses and mastoid air cells are well aerated. IMPRESSION: No evidence for sacular aneurysm, high-grade stenosis, or central vascular occlusion involving the an terior or posterior circulation. POS: [facility]
[2019-05-13] MEDS ORDERED: Iopamidol 370 76% 100 ML VIAL ONE (12:30)
--- NOTE | 2019-05-13 12:44 | CT ---
CT ANGIOGRAM OF THE NECK: DATE: 05/13/2019. COMPARISON: None. HISTORY: TIA versus CVA, altered mental status. TECHNIQUE: Axial CT imaging at 1.25 mm intervals from the lung apices through the skull base with IV contrast. Coronal and sagittal 3D reformatted imaging obtained. FINDINGS: Coronary arterial calcification is present. Visualized lung apices are unremarkable. The retroantral and the parapharyngeal fat appears clear bilaterally. The parotid glands and the sub mandibular glands are unremarkable. The level of the tonsillar pillars, epiglottis, and preepiglotti c fat, hyoid bone, thyroid cartilage, and cricoid cartilage appears unremarkable. Nonspecific 1 cm centrally hypodense rim-enhancing nodule noted within the right lobe of the thyroid gland for which followup thyroid ultrasound is suggested. The origin of the innominate artery, left common carotid artery, and left subclavian artery appear un remarkable. A Bovine arch is noted. The origin of the vertebral artery on the left appears unremarkable. There is moderate stenosis at the origin of the right vertebral artery. Bilateral vertebral arteries are patent. The origin of the right subclavian artery and the origin of the right common carotid artery appear gr ossly unremarkable. The right common carotid artery is tortuous proximally. On the basis of NASCET criteria. There is no hemodynamically significant stenosis involving the inter nal or the common carotid artery on either side. The bilateral internal carotid arteries are tortuou s. There is tortuosity at the origin of the left common carotid artery. There is no lymphadenopathy noted within the neck. Review of the osseous structures demonstrates no worrisome findings. There is degenerative change at the atlantoaxial interspace. IMPRESSION: 1. No hemodynamically significant stenosis is seen involving the internal carotid or the common patel tid artery on either side. There is stenosis at the origin of the right vertebral artery. 2. Thyroid nodule on the right for which followup thyroid ultrasound is advised. POS: [facility]
[2019-05-13] MEDS ORDERED: Lorazepam 2 MG/ML VIAL SLOW IVP SCH (13:08)
--- NOTE | 2019-05-13 16:04 | RAD ---
FRONTAL VIEW LUMBAR SPINE: 05/13/19 INDICATION: Surveillance radiograph. FINDINGS: There is no radiopaque metallic device identified overlying the abdomen, where visualized. There is e xcreted contrast of the bilateral urinary collecting system as well as the partially imaged urinary b ladder. Dystrophic calcification of the pelvis is present. IMPRESSION: No metallic device seen overlying the imaged abdomen. POS: [facility]
--- NOTE | 2019-05-13 16:06 | RAD ---
THORACIC SPINE ONE VIEW: 05/13/19 HISTORY: Surveillance radiograph. There are numerous leads overlying the chest. Otherwise, no radiopaque metallic device is seen overly ing the imaged thoracic spine. There is excreted contrast of the bilateral renal collecting systems. There is degenerative change of the imaged thoracic spine. IMPRESSION: Aside from overlying leads, there are no radiopaque metallic device seen overlying the imaged spine. POS: [facility]
--- NOTE | 2019-05-13 17:10 | MRI ---
BRAIN MRI NONCONTRAST: 05/13/19 INDICATION: Stroke. Reference made to head CT previous day. FINDINGS: There is a focus of restricted diffusion involving the left brain stem near the junction of the cereb ral peduncle and left paramedian magno. There is mild chronic ischemic disease and superimposed cavita ry lacunar infarctions of the cerebral white matter. No hemorrhage, mass effect or midline shift. IMPRESSION: Acute infarction at the junction of the left cerebral peduncle and left paramedian magno. Microvascular ischemic disease and superimposed multifocal cavitary lacunar infarctions. POS: [facility]
--- NOTE | 2019-05-13 17:11 | HP ---
HISTORY OF PRESENT ILLNESS: I have examined the patient. I have discussed the case with Dr. Weston Pineda. Ms. 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 The daughter noticed that the patient was unable to hold herself up, had the right-sided weakness and brought her to the ER. It was also noted that she had possibly taken 70, 10 mg Vicodin tablets over the last two weeks. She was given Narcan in the ER, where she had presented in a somnolent state. This aroused her quickly and made her much more alert. She was admitted with possible undeliberate drug overdose versus TIA/stroke. PHYSICAL EXAMINATION: VITAL SIGNS: Her blood pressure is 140/80, her heart rate is 90, her respirations are 18, and her room air pulse ox is 96%. GENERAL: This morning, she is awake and alert. HEENT: She does seem to have a right-sided facial droop. NECK: Supple. CARDIAC: Heart rhythm regular. No gallop or murmur. LUNGS: Breath sounds are diminished, but clear. She is in no respiratory distress. ABDOMEN: Flat and soft without guarding, rebound, or rigidity. NEUROLOGIC: As stated, she does seem to have slightly diminished strength on the right side, although this could be somewhat subjective. LABORATORY DATA: CBC; white count is 6600, hemoglobin is 14.5, hematocrit 44.3 with an MCV of 96.9. Chemistries; sodium is 138, potassium was initially 3.2, chloride 106, bicarb 25, BUN 13, and creatinine 0.9. Glucose is 121. Liver enzymes are normal. Her troponins are all less than 0.01. Urine toxicology shows less than 8 salicylates, less than 6 acetaminophen, and less than [address], shows no acute intracranial abnormality. There is stable chronic small-vessel ischemic changes and cerebral volume loss with stable remote lacunar infarcts in the each basal ganglia. ASSESSMENT: 1. Possible transient ischemic attack/stroke. 2. Unintentional drug overdose with narcotics. PLAN: We will go ahead and do a TIA workup with CTA of the head and neck and MRI. We will have a very careful discussion with the patient's family about her use of Vicodin given that she is blind and identifies her pills by touch. Job ID: [id number]
--- NOTE | 2019-05-13 19:01 | PDOC.EVN ---
Event Note - Event Note Event Note: Received page from stroke floor that patient wanted to leave AMA and if she could not, she would hang herself. Went to see patient. She is AxO x4, not confused. She is blind at baseline. Pt knows she is in hospital for stroke and it was explained her MRI today showed new stroke. Discussed needing to monitor pt in the hospital for her new stroke. Pt talked about how her family does not care about her; she would really like to go home and sleep in her home bed. She normally takes Lyrica to help her sleep and she reports not sleeping well here. Helped patient eat some dinner, which helped her feel better. She is very emotional at this time. A/P: - Pt does not have depression at baseline. 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 She is not confused. - Pt To have 24-hour sitter. Precautions in place for meal tray. - Nursing has called family members and will try to have someone from family come see her tonight. - Will order lyrica for pt to try to help her sleep.
[2019-05-13] MEDS: Rosuvastatin 20 MG TAB PO SCH (19:54)
[2019-05-13] MEDS: Pregabalin 50 MG CAP PO SCH (19:55)
--- NOTE | 2019-05-14 06:14 | PDOC.FM ---
- Subjective Subjective: Mrs. Guy was sleeping but easily arousable during the evaluation. She appears to be acutely depressed since 05/13/19, frequently crying during the evaluation, but denied any headaches, chest pain or shortness of breath. Her history and physical exam continues to be limited by her generalized weakness and poor medical insight. She has had a hospital sitter since last night because continued statements about wanting to leave and/or . - Objective Vital Signs & Weight: Vital Signs (12 hours) Temp Pulse Resp BP Pulse Ox 05/14/19 03:53 98.3 F 52 L 16 133/66 92 L 05/14/19 00:17 94 L 05/14/19 00:00 98.1 F 60 20 185/81 H 92 L 05/13/19 20:00 96 05/13/19 19:45 97.6 F 66 16 178/91 H 94 L Weight Admit Weight 87.09 kg Weight 87.09 kg I&O: 05/12/19 05/13/19 05/14/19 06:59 06:59 06:59 Intake Total 200 200 Output Total 800 Balance 200 -600 Result Diagrams: 05/13/19 04:55 05/13/19 04:54 Phys Exam - Physical Examination Constitutional: NAD HEENT: moist MMs, sclera anicteric, oral pharynx no lesions Left pupil dilation Neck: no nodes, supple, full ROM Respiratory: no wheezing, no rales, no rhonchi, clear to auscultation bilateral Cardiovascular: RRR, no significant murmur, no rub Gastrointestinal: soft, non-tender, no distention Musculoskeletal: no edema, pulses present Neurological: moves all 4 limbs Lymphatic: no nodes Deviation from normal: Depressed, often crying Skin: no rash Dx/Plan (1) Opioid abuse Code(s): F11.10 - OPIOID ABUSE, UNCOMPLICATED Status: Acute (2) TIA (transient ischemic attack) Code(s): G45.9 - TRANSIENT CEREBRAL ISCHEMIC ATTACK, UNSPECIFIED Status: Acute (3) Chronic back pain Code(s): M54.9 - DORSALGIA, UNSPECIFIED; G89.29 - OTHER CHRONIC PAIN Status: Chronic - Plan Plan: 1) Right-Sided Weakness: R/o TIA vs CVA -Patient and daughter are admittedly poor historians, >48H of generalized weakness worse on right but difficult to assess fully -No acute change in functional or mental status -SP aspirin, narcan, 1 L NS in ED -Physical exam noted for diffuse weakness, right-sided facial droop and left dilated pupil -CT Brain: Chronic ischemic changes -Brain MRI: Acute infarct at Left Cerebral Peduncle and Left Estela -CTA Neck: 1 cm ring-enhancing nodule in Thyroid - will likely require follow- up in outpatient setting -CTA Head: NAF -Neurology consulted - awaiting recs -Continue Aspirin, Statin -Current mental state difficult to assess due to acute-onset depression - coordinate with family on desired plan of care in light of pending Neuro recs 2) Opioid Abuse -Based on history from daughter, possibly has taken a significant amount of Vicodin over past 2 weeks -Prescribed 90 tabs of Vicodin 1-2 weeks ago, daughter stated about only 20 tabs remaining -Symptoms improved with Narcan in ED -Patient is protecting airway, no mioisis, normal HR and RR -Continue to hold pain medications -Will give Narcan if needed 2) HTN -BP on 05/14/19 was 155/87 -Restart home medications after 24 hours -Allow for permissive hypertension 3) GERD -Restart home medication regimen 4) OA -Continue to hold pain medications Code Status: FULL CODE Diet: Soft Diet Activity: Bed Rest Dispo: Patient currently admitted to Obs/Stroke Unit with Neuro recs pending. Coordinate with daughter and/or son and discuss desired plan of care.
[2019-05-14] MEDS: Aspirin 81 mg Enteric Coated Tablet PO SCH (09:12)
[2019-05-14] MEDS: Famotidine 20 MG TAB PO SCH ×2 (09:12→20:24)
[2019-05-14] MEDS: Enoxaparin Sodium 40 MG/0.4 ML SYRINGE SC SCH (09:12)
[2019-05-14] MEDS: Pregabalin 50 MG CAP PO SCH ×2 (09:12→20:23)
--- NOTE | 2019-05-14 11:54 | PRG ---
DATE OF SERVICE: 05/14/2019 The MRI yesterday on Ms. Guy does show that she has had a fresh stroke. This morning, she is awake and alert. She became very depressed during the night, but seems a bit better this morning. She is, however, very anxious to go home. We will begin OT, PT, place her on aspirin and atorvastatin. Job ID: [id number]
[2019-05-14 13:03] LABS: ALT (SGPT) 24 U/L (8-55); AST (SGOT) 27 U/L (5-34); Albumin 3.8 g/dL (3.4-4.8); Alkaline Phosphatase 93 U/L (40-150); Anion Gap 12 mmol/L (10-20); BUN (Urea Nitrogen) 16 mg/dL (9.8-20.1); Bilirubin, Total 0.6 mg/dL (0.2-1.2); Calc. Creatinine Clearance 74 mL/min (70-130); Calcium 10.1 mg/dL (7.8-10.44); Carbon Dioxide 25 mmol/L (23-31); Chloride 105 mmol/L (98-107); Estimated GFR-MDRD 64; Globulin 3.6 g/dL (2.4-3.5); Glucose 100 mg/dL (80-115); Potassium 3.6 mmol/L (3.5-5.1); Protein, Total 7.4 g/dL (6.0-8.3); Sodium 138 mmol/L (136-145)
--- NOTE | 2019-05-14 19:35 | CON ---
DATE OF CONSULTATION: 05/14/2019 RN with consult is Darin Swain. CHIEF COMPLAINT: Dysarthria. HISTORY OF PRESENT ILLNESS: The patient is legally blind. She can barely see light from her eyes. She lost her vision a few years ago. She reports she was talking funny and her grandchildren brought her here. She sees a pain management physician for her back pain, and the patient is on various narcotics and there is also suspicion whether she has narcotic dependency. She apparently had taken 70 of the 10 mg Vicodin over the last 2 weeks. She received Narcan in the ER. She was in a somnolent state and then woke up. Today, she is feeling much better, but she reports she has right-sided weakness. On her pervious medical history, she has hypertension and back pain. PREVIOUS MEDICAL HISTORY: She has hypertension, glaucoma, and chronic back pain. She is on daily narcotic. She has osteoarthritis and gastroesophageal reflux disease. PREVIOUS SURGICAL HISTORY: Carpal tunnel syndrome, tubal ligation, and left knee replacement. FAMILY HISTORY: Negative for strokes. SOCIAL HISTORY: She smokes 1.5 packs a day of cigarettes. She does not drink alcohol. She does note that she needs to quit smoking and she denies any drug use. She lives with her family. REVIEW OF SYSTEMS: PULMONARY: Negative for shortness of breath or cough. GI: Negative for any nausea, vomiting, or diarrhea. HEMATOLOGIC: Negative for bleeding diathesis. DERMATOLOGIC: Negative for rash. NEUROLOGIC: Positive for right-sided weakness. MUSCULOSKELETAL: Positive for osteoarthritis. ALLERGIES: NO KNOWN DRUG ALLERGIES. MEDICATIONS: At home: 1. Lyrica. 2. Nexium. 3. Hydrocodone. 4. Tizanidine. 5. Amlodipine. 6. Aspirin. 7. Meclizine. 8. Hydrochlorothiazide. 9. Valsartan. LABORATORY WORKUP: White count 6.7, hemoglobin 13.4, hematocrit 40.5, platelet count 308. Sodium 138, potassium 3.6, chloride 105, bicarb 25, BUN 16, creatinine 1.04, glucose 100, calcium 10.1. Liver functions within normal limits and triglycerides 118, cholesterol 180, LDL 100, HDL 56, and TSH is still pending. Her MRI of the brain showed acute infarct in the left cerebral peduncle and left paramedian magno, and CT angiogram was also completed and impression; no evidence for saccular aneurysm, stenosis, or central vascular occlusion involving anterior or posterior circulation. PHYSICAL EXAMINATION: VITAL SIGNS: Blood pressure 120/59, temperature 97.7, pulse 60, respiratory rate 16, and O2 saturations 98%. GENERAL APPEARANCE: Well-built, well-nourished lady, who is blind. She is edentulous. CHEST: Clear vesicular breathing. CARDIOVASCULAR: S1 and S2 heard. No murmurs. ABDOMEN: Soft. NEUROLOGIC: Higher intellectual functions. Normal orientation to time, place, and person. She got the date wrong. She stated it was 18 of May. Cranial nerves: cranial nerve 2, she is legally blind and she has no light perception or finger counting and pupils not reactive. Sensory, normal facial sensation bilaterally. She has slight left facial droop with a flat left nasolabial fold. Normal hearing bilaterally. Tongue midline. No atrophy. Normal elevation of palate. Motor; bulk normal, tone normal, and she had right upper limb drift. Strength 5/5 on the left side. Right side in upper and lower extremity strength was 4/5 throughout in iliopsoas, hamstrings, quadriceps, ankle dorsiflexion, plantar flexion, deltoid, biceps, triceps, wrist extension and flexion, finger extension and flexion bilaterally. Sensory examination was normal to touch bilaterally. Deep tendon reflexes were 3+ throughout. Cerebellar; normal [id number] and [id number]. IMPRESSION AND RECOMMENDATIONS: 1. The patient is a 63-year-old lady with acquired blindness due to glaucoma last few years and she is hypertensive as well. She presents with right-sided weakness in the setting of overuse of narcotics in the past 2 weeks for pain. Her examination shows normal strength on the left side and 4/5 strength on the right side along with the left facial droop consistent with a pontine infarct. Vascular, she does not seem to have any vascular stenosis that needs to be treated at this time. She is on aspirin at home and echocardiogram is pending at this time. Diagnosis is most consistent with an acute cerebrovascular accident, likely secondary to hypertension. Recommendations, please work on perhaps discontinuing her nicotine use. She had cigarettes in between her legs in the hospital and was requesting to go down for a puff during even our examination. 2. Increase the dose of aspirin to 325 mg and add a statin. Agree with rosuvastatin. 3. The patient needs rehab. Show a rehab admission. 4. I will follow up again with you tomorrow. Job ID: [id number] MTDAlton
[2019-05-14] MEDS: Nicotine 7 MG PATCH TOP SCH (20:24)
[2019-05-14] MEDS: Rosuvastatin 20 MG TAB PO SCH (20:24)
--- NOTE | 2019-05-14 22:01 | PDOC.FM ---
Addendum entered and electronically signed by Brooke Miranda DO 05/15/19 12:09: Date 05/15/19, 11:45 Original Note: - Subjective Subjective: Pt asleep upon entry to room. She wakes up, and sits up to speak with me. Pt states she wants to go home for rehab, and not be discharged to a rehab facility. Pt denies any further weakness today. She states that her weakness is much improved from admission. - Objective MAR Reviewed: Yes Vital Signs & Weight: Vital Signs (12 hours) Temp Pulse Resp BP Pulse Ox 05/14/19 19:59 97.4 F L 60 16 160/97 H 98 05/14/19 16:00 98.9 F 64 16 177/82 H 96 05/14/19 12:04 97.7 F 60 16 120/59 L 98 Weight Admit Weight 87.09 kg Weight 87.09 kg I&O: 05/13/19 05/14/19 05/15/19 06:59 06:59 06:59 Intake Total 200 200 Output Total 800 Balance 200 -600 Result Diagrams: 05/13/19 04:55 05/14/19 12:34 Radiology Reviewed by me: Yes (Brain CT: no acute findings, lacunar infarcts in basal ganglia. ) Phys Exam - Physical Examination Constitutional: NAD HEENT: sclera anicteric, oral pharynx no lesions Left Pupil 5 mm, Right pupil 3 mm. Sluggish reactivity bilaterally. Neck: no nodes, no JVD, supple, full ROM Respiratory: no wheezing, no rales, no rhonchi, clear to auscultation bilateral Cardiovascular: RRR, no significant murmur, no rub Gastrointestinal: soft, non-tender, no distention, positive bowel sounds Musculoskeletal: no edema, pulses present Neurological: normal sensation, moves all 4 limbs Left Pupil 5 mm, Right pupil 3 mm. Sluggish reactivity bilaterally. 4/5 strength in Right US. Equal 5/5 strength in LE's. Sensation equal in ex Psychiatric: normal affect, A&O x 3 Skin: no rash, normal turgor, cap refill <2 seconds Dx/Plan (1) TIA (transient ischemic attack) Code(s): G45.9 - TRANSIENT CEREBRAL ISCHEMIC ATTACK, UNSPECIFIED Status: Acute (2) Right sided weakness Code(s): R53.1 - WEAKNESS Status: Acute (3) Opioid abuse Code(s): F11.10 - OPIOID ABUSE, UNCOMPLICATED Status: Acute (4) Hx-TIA (transient ischemic attack) Status: Chronic (5) Hyperlipidemia Code(s): E78.5 - HYPERLIPIDEMIA, UNSPECIFIED Status: Chronic (6) Hypertension Code(s): I10 - ESSENTIAL (PRIMARY) HYPERTENSION Status: Chronic (7) Tobacco abuse Code(s): Z72.0 - TOBACCO USE Status: Chronic (8) Type 2 diabetes mellitus Status: Chronic - Plan Plan: 63 y/o F admitted for CVA rule out 1) CVA at Left Cerebral Peduncle and Left Estela. -4/5 strength on RUE, CN 2-12 grossly intact. -No acute change in functional or mental status, Pt at baseline -SP aspirin, narcan, 1 L NS in ED. Slightly improved mental status. -Left pupil 5 mm, Right pupil 3 mm, sluggish reactivity. -CT Brain: Chronic ischemic changes -Brain MRI: Acute infarct at Left Cerebral Peduncle and Left Estela -CTA Neck: 1 cm ring-enhancing nodule in Thyroid - will likely require follow- up in outpatient setting -CTA Head: No acute findings -Neurology consulted - recommends increasing ASA to 325 mg daily, high dose rosuvastatin therapy, and Rehab on D/C. Pt wants home rehab, but does not appear to be a good candidate for home rehabilitation. I recommended in patient rehab placement because of the patients opioid problem and blindness. Case management will see patient to determine best discharge plan. 2) Opioid Abuse -Based on history from daughter, possibly has taken a significant amount of Vicodin over past 2 weeks -Prescribed 90 tabs of Vicodin 1-2 weeks ago, daughter stated about only 20 tabs remaining -Symptoms improved with Narcan in ED -Patient is protecting airway, normal HR and RR -Continue to hold pain medications -Will give Narcan if needed 2) HTN -BP on 05/14/19 was 155/87 -Allow for permissive hypertension 3) GERD -Restart home medication regimen 4) OA -Continue to hold pain medications 5) Thyroid nodule -CTA Neck: 1 cm ring-enhancing nodule in Thyroid - will likely require follow- up in outpatient setting - TSH 0.4231 - T4 0.79, T3 2.50 - Thyroid US pending Code Status: FULL CODE Diet: Soft Diet Activity: Bed Rest Dispo: Patient currently admitted to Obs/Stroke Unit. Plan D/C to Rehab once meeting with case management has taken place. Stable Addendum - Attending - Attending Attestation Date/Time: 05/15/192008 I personally evaluated the patient and discussed the management with Dr. Pearce I agree with the History, Examination, Assessment and Plan documented above with any addition or exceptions noted below.
[2019-05-14] MEDS: Melatonin 3 MG TAB PO PRN (23:06)
[2019-05-14] MEDS: Acetaminophen 325 MG TAB PO PRN (23:06)
[2019-05-15 09:26] LABS: Free T4 (Free Thyroxine) 0.79 ng/dL (0.70-1.48); Thyroid Stimulating Hormone 0.4239 uIU/mL (0.35-4.94)
[2019-05-15] MEDS: Pregabalin 50 MG CAP PO SCH ×2 (09:28→20:25)
[2019-05-15] MEDS: Aspirin 325 mg Enteric Coated Tablet PO SCH (09:32)
[2019-05-15] MEDS: Famotidine 20 MG TAB PO SCH ×2 (09:32→20:25)
[2019-05-15] MEDS: Enoxaparin Sodium 40 MG/0.4 ML SYRINGE SC SCH (09:34)
--- NOTE | 2019-05-15 11:37 | PRG ---
DATE OF SERVICE: 05/15/2019 CHIEF COMPLAINT: Acute stroke. INTERVAL HISTORY: She was in pain today when we examined her by a Telemedicine consult. The patient is continuing to have right-sided weakness and no new events were noted since yesterday. LABORATORY DATA: White count 6.7, hemoglobin 13.4, hematocrit 40.5, platelets 308. Thyroid function is normal. Her sodium is 138, potassium 3.6, chloride 105, BUN 16, creatinine 1.04. IMAGING STUDIES: No further imaging results are available. PHYSICAL EXAMINATION: VITAL SIGNS: Blood pressure is 174/85, temperature is 97.8, pulse is 57, respiratory rate is 16. GENERAL APPEARANCE: Well-built, well-nourished lady, who is in pain, and she reports she is in pain from her back. NEUROLOGIC: Cranial nerves, normal extraocular movements. She has left facial droop. Motor exam, she has normal strength on the left side, 4/5 strength on the right side. IMPRESSION: The patient with a pontine cerebrovascular accident secondary to hypertension. She still has right-sided weakness. She is awaiting completion of some of her stroke workup including echocardiogram, and at this time, she has no neural changes. RECOMMENDATION: Please complete her echocardiogram and stroke workup, and she can be discharged to rehab for recovery. Continue aspirin 325 mg with statin for stroke prophylaxis. I will see her as needed. Job ID: [id number]
--- NOTE | 2019-05-15 12:57 | ULT ---
THYROID ULTRASOUND: Date: 05/15/19 INDICATION: Thyroid nodule noted on CT. FINDINGS: Both lobes of the thyroid are mildly heterogeneous. Right lobe measures 3.8 x 1.4 x 2.0 cm. Left lobe measures 4.2 x 1.5 x 1.6 cm. There is a 1.0 cm isoechoic nodule in the inferior right lobe. There is a 0.5 cm hypoechoic nodule in the mid left lobe. IMPRESSION: Both lobes are very heterogeneous, which makes it difficult to delineate nodules. There appears to be a 1.0 cm isoechoic nodule in the inferior right lobe. There is a tiny hypoechoic nodule in the mid l eft lobe. Recommend follow-up thyroid ultrasound in 6 months to confirm stability. POS: OFF
--- NOTE | 2019-05-15 14:56 | EKG ---
Test Reason : Blood Pressure : / mmHG Vent. Rate : 070 BPM Atrial Rate : 070 BPM P-R Int : 136 ms QRS Dur : 084 ms QT Int : 398 ms P-R-T Axes : 034 003 050 degrees QTc Int : 429 ms Sinus rhythm with Premature atrial complexes Possible Anterior infarct , age undetermined Abnormal ECG Confirmed by NATANAEL NIÑO M.D. ([id number]), senior editor FRANCISCO JAVIER ROMO ([id number]) on 05/15/2019 2:56:14 PM Referred By: Confirmed By:NATANAEL NIÑO M.D.
[2019-05-15] MEDS: Nicotine 7 MG PATCH TOP SCH (15:42)
[2019-05-15] MEDS: Acetaminophen 325 MG TAB PO PRN ×2 (16:07→22:43)
[2019-05-15] MEDS: Rosuvastatin 20 MG TAB PO SCH (20:25)
[2019-05-15] MEDS: Melatonin 3 MG TAB PO PRN (20:26)
--- NOTE | 2019-05-16 05:46 | PDOC.FM ---
- Subjective Subjective: Pt states she is agreeable to going to a rehab facility after discharge. She states she spoke with [facility] yesterday, who cleared the pt and they agree rehab would be best discharge plan for patient. Pt did well overnight, no overnight events. - Objective MAR Reviewed: Yes Vital Signs & Weight: Vital Signs (12 hours) Temp Pulse Resp BP Pulse Ox 05/16/19 03:57 97.4 F L 49 L 16 164/72 H 97 05/15/19 23:35 97.9 F 55 L 16 168/78 H 97 Weight Admit Weight 87.09 kg Weight 87.09 kg I&O: 05/14/19 05/15/19 05/16/19 06:59 06:59 06:59 Intake Total 200 700 Output Total 800 Balance -600 700 Result Diagrams: 05/13/19 04:55 05/14/19 12:34 Phys Exam - Physical Examination Constitutional: NAD HEENT: moist MMs, sclera anicteric Neck: no nodes, no JVD, supple, full ROM Respiratory: no wheezing, no rales, no rhonchi, clear to auscultation bilateral Cardiovascular: RRR, no significant murmur, no rub Gastrointestinal: soft, non-tender, no distention, positive bowel sounds Musculoskeletal: no edema, pulses present Neurological: non-focal, normal sensation, moves all 4 limbs blind. Psychiatric: normal affect, A&O x 3 Skin: no rash, normal turgor, cap refill <2 seconds Dx/Plan (1) TIA (transient ischemic attack) Code(s): G45.9 - TRANSIENT CEREBRAL ISCHEMIC ATTACK, UNSPECIFIED Status: Acute (2) Right sided weakness Code(s): R53.1 - WEAKNESS Status: Acute (3) Opioid abuse Code(s): F11.10 - OPIOID ABUSE, UNCOMPLICATED Status: Acute (4) Hx-TIA (transient ischemic attack) Status: Chronic (5) Hyperlipidemia Code(s): E78.5 - HYPERLIPIDEMIA, UNSPECIFIED Status: Chronic (6) Hypertension Code(s): I10 - ESSENTIAL (PRIMARY) HYPERTENSION Status: Chronic (7) Tobacco abuse Code(s): Z72.0 - TOBACCO USE Status: Chronic (8) Type 2 diabetes mellitus Status: Chronic - Plan Plan: 63 y/o F admitted for CVA rule out 1) CVA at Left Cerebral Peduncle and Left Estela. -4/5 strength on RUE, CN 2-12 grossly intact. -No acute change in functional or mental status, Pt at baseline -SP aspirin, narcan, 1 L NS in ED. Slightly improved mental status. -Left pupil 5 mm, Right pupil 3 mm, sluggish reactivity. -CT Brain: Chronic ischemic changes -Brain MRI: Acute infarct at Left Cerebral Peduncle and Left Estela -CTA Neck: 1 cm ring-enhancing nodule in Thyroid - will likely require follow- up in outpatient setting -CTA Head: No acute findings - TTE pending -Neurology consulted - recommends increasing ASA to 325 mg daily, high dose rosuvastatin therapy, and Rehab on D/C. Pt wants home rehab, but does not appear to be a good candidate for home rehabilitation. I recommended in patient rehab placement because of the patients opioid problem and blindness. Case management will see patient to determine best discharge plan. 2) Opioid Abuse -Based on history from daughter, possibly has taken a significant amount of Vicodin over past 2 weeks -Prescribed 90 tabs of Vicodin 1-2 weeks ago, daughter stated about only 20 tabs remaining -Symptoms improved with Narcan in ED -Patient is protecting airway, normal HR and RR -Continue to hold pain medications -Will give Narcan if needed 2) HTN -BP on 05/14/19 was 155/87 -Allow for permissive hypertension 3) GERD -Restart home medication regimen 4) OA -Continue to hold pain medications 5) Thyroid nodule -CTA Neck: 1 cm ring-enhancing nodule in Thyroid - will likely require follow- up in outpatient setting - TSH 0.4231 - T4 0.79, T3 2.50 - Thyroid US:Increased heterogenous thyroid lobes bilaterally. 1.0 cm isoechoic nodule in inferior R-Lobe. Tiny hypoechoic nodule in mid L-lobe. Radiologist recommends f/u US in 6 months to check for stability. 6) Suicidal Ideations, improved - Pt wanting to smoke, and expressed suicidal feelings if unable to do so. - MR saw patient and cleared her for rehab discharge. Code Status: FULL CODE Diet: Soft Diet Activity: Bed Rest Dispo: Patient currently admitted to Obs/Stroke Unit. Plan D/C to Rehab once meeting with case management has taken place. Stable Addendum - Attending - Attending Attestation Date/Time: 05/16/19 2377 I personally evaluated the patient and discussed the management with Dr. Miranda I agree with the History, Examination, Assessment and Plan documented above with any addition or exceptions noted below.
[2019-05-16] MEDS: Enoxaparin Sodium 40 MG/0.4 ML SYRINGE SC SCH (09:45)
[2019-05-16] MEDS: Aspirin 325 mg Enteric Coated Tablet PO SCH (09:45)
[2019-05-16] MEDS: Famotidine 20 MG TAB PO SCH ×2 (09:45→20:38)
[2019-05-16] MEDS: Pregabalin 50 MG CAP PO SCH ×2 (09:45→20:38)
[2019-05-16] MEDS: Nicotine 7 MG PATCH TOP SCH (16:36)
[2019-05-16] MEDS: Melatonin 3 MG TAB PO PRN (20:39)
[2019-05-16] MEDS: Rosuvastatin 20 MG TAB PO SCH (20:39)
[2019-05-16] MEDS: Acetaminophen 325 MG TAB PO PRN (22:16)
--- NOTE | 2019-05-17 06:08 | PDOC.FM ---
- Subjective Subjective: Mrs. Guy was alert and oriented at the time of the evaluation. She had no overnight complaints, other than the fact that she could not smoke. She was recently cleared by [facility], and none of the hospital staff report any repeat threats of suicidal ideation. She denies any chest pain, shortness of breath or abdominal pain at this time. - Objective Vital Signs & Weight: Vital Signs (12 hours) Temp Pulse Resp BP BP Pulse Ox 05/17/19 04:00 97.5 F L 46 L 16 139/67 99 05/17/19 00:00 97.8 F 52 L 16 143/75 H 97 05/16/19 20:38 100 05/16/19 20:00 97.3 F L 54 L 16 162/70 H 100 Weight Admit Weight 87.09 kg Weight 87.09 kg I&O: 05/15/19 05/16/19 05/17/19 06:59 06:59 06:59 Intake Total 700 Balance 700 Result Diagrams: 05/13/19 04:55 05/14/19 12:34 Phys Exam - Physical Examination Constitutional: NAD HEENT: PERRLA, moist MMs, sclera anicteric, oral pharynx no lesions Neck: no nodes, supple, full ROM Respiratory: no wheezing, no rales, no rhonchi, clear to auscultation bilateral Cardiovascular: RRR, no significant murmur, no rub Gastrointestinal: soft, non-tender, no distention Musculoskeletal: no edema, pulses present Neurological: non-focal, normal sensation, moves all 4 limbs Patient's strength appear to be greatly improved from 05/14/19 Lymphatic: no nodes Psychiatric: normal affect, A&O x 3 Skin: no rash Dx/Plan (1) Opioid abuse Code(s): F11.10 - OPIOID ABUSE, UNCOMPLICATED Status: Acute (2) TIA (transient ischemic attack) Code(s): G45.9 - TRANSIENT CEREBRAL ISCHEMIC ATTACK, UNSPECIFIED Status: Acute (3) Chronic back pain Code(s): M54.9 - DORSALGIA, UNSPECIFIED; G89.29 - OTHER CHRONIC PAIN Status: Chronic - Plan Plan: 1. CVA at Left Cerebral Peduncle and Left Estela -4/5 strength on RUE, CN 2-12 grossly intact. -No acute change in functional or mental status, patient is currently at baseline per daughter -SP aspirin, Narcan x1, 1 L NS in ED. Slightly improved mental status in ED, continued to improve on the Telemetry Floor -Left Pupil: 5 mm / Right Pupil: 3 mm, sluggish reactivity. -CT Brain: Chronic ischemic changes -Brain MRI: Acute infarct at Left Cerebral Peduncle and Left Estela -CTA Neck: 1 cm ring-enhancing nodule in Thyroid - will likely require follow- up in outpatient setting -CTA Head: NAF -TTE: EF 55-60% with only mild diastolic dysfunction noted -Neurology: Recommended increasing ASA to 325 mg daily, high dose Rosuvastatin therapy, and rehab following DC. Patient desired in-home rehab, and daughter was counseled on the likely decreased efficacy of in-home rehab vs. in-patient rehab based on the patient's likely continued abused of tobacco and opioids. Case management will see patient to determine best discharge plan. 2) Opioid Abuse -Based on history from daughter, the patient took a significant amount of Vicodin (>70 tablets) over past 2 weeks -Generalized weakness and disorientation symptoms improved with Narcan x1 in ED -Patient is protecting airway well, with normal HR and RR -Continue to hold pain medication regimen -Administer Narcan if needed 2) HTN -BP on 05/17/19 was 139/67 -Allow for permissive hypertension 3) GERD -Restart home medication regimen 4) OA -Continue to hold pain medications 5) Thyroid nodule -CTA Neck: 1 cm ring-enhancing nodule in Thyroid -TSH: 0.4231 -T4: 0.79, T3: 2.50 -Thyroid US: Increased heterogenous thyroid lobes bilaterally. 1.0 cm isoechoic nodule in right inferior lobe. Tiny hypoechoic nodule in mid-left lobe. Radiologist recommends f/u US in an outpatient setting in 6 months to check for stability. 6) Suicidal Ideations, Resolved -Patient wanting to smoke, and expressed suicidal feelings if unable to do so. -MR saw patient and cleared her for DC and eventual rehab Code Status: FULL CODE Diet: Soft Diet Activity: Bed Rest Dispo: Patient currently admitted to Obs/Stroke Unit. Plan D/C to home following Case Management recommendations for at-home rehab therapy. Ensure follow-up for thyroid nodule in 6 months. Addendum - Attending - Attending Attestation Date/Time: 05/17/19 3328 I personally evaluated the patient and discussed the management with Dr. Botello. I agree with the History, Examination, Assessment and Plan documented above with any addition or exceptions noted below. Begin improving BP, will need short term outpatient follow up. ASA and statin. D/c smoking if she is willing. Follow up thyroid sono in 6 months.
[2019-05-17] MEDS: Famotidine 20 MG TAB PO SCH ×2 (09:02→21:24)
[2019-05-17] MEDS: Enoxaparin Sodium 40 MG/0.4 ML SYRINGE SC SCH (09:02)
[2019-05-17] MEDS: Aspirin 325 mg Enteric Coated Tablet PO SCH (09:02)
[2019-05-17] MEDS: Pregabalin 50 MG CAP PO SCH ×2 (09:02→21:23)
[2019-05-17] MEDS: Nicotine 7 MG PATCH TOP SCH (17:41)
[2019-05-17] MEDS: Melatonin 3 MG TAB PO PRN (21:23)
[2019-05-17] MEDS: Rosuvastatin 20 MG TAB PO SCH (21:24)
--- NOTE | 2019-05-18 05:34 | PDOC.FM ---
- Subjective Subjective: Mrs. Guy appeared well this morning during the time of the evaluation. Her only complaint throughout the night was some back and LE pain, most of which is chronic, that she attributes to her bed being uncomfortable. She appears to be in favor of being DC'd today to [facility], and states that her daughter is in agreement as well. She denies any overnight episodes of chest pain, shortness of breath or abdominal pain. - Objective Vital Signs & Weight: Vital Signs (12 hours) Temp Pulse Resp BP BP Pulse Ox 05/18/19 04:42 98.6 F 50 L 16 132/64 99 05/18/19 00:00 98.6 F 57 L 16 144/69 H 94 L 05/17/19 22:47 61 175/85 H 05/17/19 21:00 98 05/17/19 20:05 98.6 F 61 16 198/78 H 94 L Weight Admit Weight 87.09 kg Weight 87.09 kg I&O: 05/16/19 05/17/19 05/18/19 06:59 06:59 06:59 Output Total 300 Balance -300 Result Diagrams: 05/13/19 04:55 05/14/19 12:34 Phys Exam - Physical Examination Constitutional: NAD HEENT: PERRLA, moist MMs, sclera anicteric, oral pharynx no lesions Left pupil dilated Neck: no nodes, supple, full ROM Respiratory: no wheezing, no rales, no rhonchi, clear to auscultation bilateral Cardiovascular: RRR, no significant murmur, no rub Gastrointestinal: soft, non-tender, no distention Musculoskeletal: no edema, pulses present Neurological: non-focal, moves all 4 limbs Patient's strength and facial drooping appear to be at baseline Lymphatic: no nodes Psychiatric: normal affect, A&O x 3 Skin: no rash Dx/Plan (1) Opioid abuse Code(s): F11.10 - OPIOID ABUSE, UNCOMPLICATED Status: Acute (2) TIA (transient ischemic attack) Code(s): G45.9 - TRANSIENT CEREBRAL ISCHEMIC ATTACK, UNSPECIFIED Status: Acute (3) Chronic back pain Code(s): M54.9 - DORSALGIA, UNSPECIFIED; G89.29 - OTHER CHRONIC PAIN Status: Chronic - Plan Plan: 1. CVA at Left Cerebral Peduncle and Left Estela -4/5 strength on RUE, CN 2-12 grossly intact. -No acute change in functional or mental status, patient is currently at baseline per daughter -SP aspirin, Narcan x1, 1 L NS in ED. Slightly improved mental status in ED, continued to improve on the Telemetry Floor -Left Pupil: 5 mm / Right Pupil: 3 mm, sluggish reactivity. -CT Brain: Chronic ischemic changes -Brain MRI: Acute infarct at Left Cerebral Peduncle and Left Estela -CTA Neck: 1 cm ring-enhancing nodule in Thyroid - will likely require follow- up in outpatient setting -CTA Head: NAF -TTE: EF 55-60% with only mild diastolic dysfunction noted -Neurology: Recommended increasing ASA to 325 mg daily, high dose Rosuvastatin therapy, and rehab following DC. -Patient desired in-home rehab, and daughter was counseled on the likely decreased efficacy of in-home rehab vs. in-patient rehab based on the patient's likely continued abused of tobacco and opioids. -Current plan is to DC to [facility] for in-patient rehab 2) Opioid Abuse -Based on history from daughter, the patient took a significant amount of Vicodin (>70 tablets) over past 2 weeks -Generalized weakness and disorientation symptoms improved with Narcan x1 in ED -Patient is protecting airway well, with normal HR and RR -Continue to hold pain medication regimen -Administer Narcan if needed 2) HTN -BP on 05/17/19 was 132/64 -Allow for permissive hypertension 3) GERD -Restart home medication regimen 4) OA -Continue to hold pain medications 5) Thyroid nodule -CTA Neck: 1 cm ring-enhancing nodule in Thyroid -TSH: 0.4231 -T4: 0.79, T3: 2.50 -Thyroid US: Increased heterogenous thyroid lobes bilaterally. 1.0 cm isoechoic nodule in right inferior lobe. Tiny hypoechoic nodule in mid-left lobe. Radiologist recommends f/u US in an outpatient setting in 6 months to check for stability. 6) Suicidal Ideations, Resolved -Patient wanted to smoke, and expressed suicidal ideations when unable to do so -[facility] saw patient and cleared her for DC and eventual rehab Code Status: FULL CODE Diet: Soft Diet Activity: Bed Rest Dispo: Patient currently admitted to Obs/Stroke Unit. Plan to DC to [facility] following Case Management recommendations for in-patient rehab. Ensure follow- up for thyroid nodule in 6 months. Anticipated LOS < 24H Addendum - Attending - Attending Attestation Date/Time: 05/18/19 1112 I personally evaluated the patient and discussed the management with Dr. Botello. I agree with the History, Examination, Assessment and Plan documented above with any addition or exceptions noted below.
[2019-05-18] MEDS: Pregabalin 50 MG CAP PO SCH ×2 (08:06→22:56)
[2019-05-18] MEDS: Aspirin 325 mg Enteric Coated Tablet PO SCH (08:07)
[2019-05-18] MEDS: Famotidine 20 MG TAB PO SCH ×2 (08:07→22:57)
[2019-05-18] MEDS: Enoxaparin Sodium 40 MG/0.4 ML SYRINGE SC SCH (08:07)
[2019-05-18] MEDS: Acetaminophen 325 MG TAB PO PRN ×2 (08:20→22:56)
[2019-05-18] MEDS: Nicotine 7 MG PATCH TOP SCH (15:35)
[2019-05-18] MEDS: Melatonin 3 MG TAB PO PRN (22:57)
[2019-05-18] MEDS: Rosuvastatin 20 MG TAB PO SCH (22:57)
--- NOTE | 2019-05-19 06:11 | PDOC.FM ---
- Subjective Subjective: Mrs. Guy was resting comfortably during the time of the evaluation and reported no overnight events. She feels well enough to be DC'd to a rehab facility this AM. She was counseled on the importance of smoking cessation and avoidance of opioid abuse. She was receptive to this information, and she seemed optimistic about her long-term prognosis. - Objective Vital Signs & Weight: Vital Signs (12 hours) Temp Pulse Resp BP BP Pulse Ox 05/19/19 03:20 97.6 F 50 L 16 119/59 L 96 05/18/19 23:57 97.4 F L 53 L 16 119/65 97 05/18/19 20:15 97 05/18/19 20:00 98.1 F 56 L 16 143/92 H 97 Weight Admit Weight 87.09 kg Weight 87.09 kg I&O: 05/17/19 05/18/19 05/19/19 06:59 06:59 06:59 Output Total 300 400 Balance -300 -400 Result Diagrams: 05/13/19 04:55 05/14/19 12:34 Phys Exam - Physical Examination Constitutional: NAD HEENT: moist MMs, sclera anicteric, oral pharynx no lesions Left pupil dilated Neck: no nodes, supple, full ROM Respiratory: no wheezing, no rales, no rhonchi, clear to auscultation bilateral Cardiovascular: RRR, no significant murmur, no rub Gastrointestinal: soft, non-tender, no distention Musculoskeletal: no edema, pulses present Neurological: moves all 4 limbs Lymphatic: no nodes Psychiatric: normal affect Skin: no rash Dx/Plan (1) Opioid abuse Code(s): F11.10 - OPIOID ABUSE, UNCOMPLICATED Status: Acute (2) TIA (transient ischemic attack) Code(s): G45.9 - TRANSIENT CEREBRAL ISCHEMIC ATTACK, UNSPECIFIED Status: Acute (3) Chronic back pain Code(s): M54.9 - DORSALGIA, UNSPECIFIED; G89.29 - OTHER CHRONIC PAIN Status: Chronic - Plan Plan: 1. CVA at Left Cerebral Peduncle and Left Estela -4/5 strength on RUE, CN 2-12 grossly intact. -Patient is currently at mental and physical baseline, per daughter -SP Aspirin, Narcan x1, 1 L NS in ED. Slightly improved mental status in ED, continued to improve on the Telemetry Floor -Left Pupil: 5 mm / Right Pupil: 3 mm, sluggish reactivity, bilateral visual impairment at baseline -CT Brain: Chronic ischemic changes -Brain MRI: Acute infarct at Left Cerebral Peduncle and Left Estela -CTA Neck: 1 cm ring-enhancing nodule in Thyroid - will likely require follow- up in outpatient setting -CTA Head: NAF -TTE: EF 55-60% with only mild diastolic dysfunction noted -Neurology: Recommended increasing ASA to 325 mg daily, high dose Rosuvastatin therapy, and rehab following DC. -Patient desired in-home rehab, and daughter was counseled on the likely decreased efficacy of in-home rehab vs. in-patient rehab based on the patient's likely continued abused of tobacco and opioids. -Current plan is to DC to [place] for in-patient rehab 2) Opioid Abuse -Based on history from daughter, the patient took a significant amount of Vicodin (>70 tablets) over past 2 weeks -Generalized weakness and disorientation symptoms improved with Narcan x1 in ED -Division Head patient on risk of Opioid Overdose prior to DC 2) HTN -Allow for permissive hypertension until DC 3) GERD -Restart home medication regimen 4) OA -Continue to hold pain medications -Division Head patient on risk of Opioid Overdose prior to DC 5) Thyroid nodule -CTA Neck: 1 cm ring-enhancing nodule in Thyroid -TSH: 0.4231 -T4: 0.79, T3: 2.50 -Thyroid US: Increased heterogenous thyroid lobes bilaterally. 1.0 cm isoechoic nodule in right inferior lobe. Tiny hypoechoic nodule in mid-left lobe. Radiologist recommends f/u US in an outpatient setting in 6 months to check for stability. 6) Suicidal Ideations, Resolved -Patient wanted to smoke, and expressed suicidal ideations when unable to do so -[facility] saw patient and cleared her for DC and eventual rehab Code Status: FULL CODE Diet: Soft Diet Activity: Bed Rest Dispo: Patient currently admitted to Obs/Stroke Unit. Plan to DC to [facility] for in-patient rehab later this AM. Ensure follow-up for thyroid nodule in 6 months. Division Head patient on need for smoking cessation and avoidance of opioid abuse. Anticipated LOS < 12H
[2019-05-19] MEDS: Acetaminophen 325 MG TAB PO PRN (08:45)
[2019-05-19] MEDS: Famotidine 20 MG TAB PO SCH (08:45)
[2019-05-19] MEDS: Aspirin 325 mg Enteric Coated Tablet PO SCH (08:45)
[2019-05-19] MEDS: Enoxaparin Sodium 40 MG/0.4 ML SYRINGE SC SCH (08:46)
[2019-05-19] MEDS: Pregabalin 50 MG CAP PO SCH (08:51)
[2019-05-19 11:59] VITALS: BP 134/78; TEMP 98.7
--- NOTE | 2019-05-20 14:24 | DIS ---
DATE OF ADMISSION: 05/12/2019 DATE OF DISCHARGE: 05/19/2019 RESIDENT: Ovidio Botello MD CONSULTS: None. PROCEDURES: EKG showing sinus rhythm with premature atrial complexes, possible anterior infarct, age indeterminate. Brain CT, no acute intracranial abnormalities demonstrated, stable chronic small-vessel ischemic changes and cerebral volume loss with stable remote lacunar infarctions in each basal ganglia. Chest x-ray, no acute lung processes. Brain MRI, acute infarction at the junction of the left cerebral peduncle and the left paramedian magno with microvascular ischemic disease and superimposed multifocal cavitary lacunar infarctions. CT angiography, no hemodynamically significant stenoses seen involving the internal carotid with a common carotid artery stenosis at the origin of the right vertebral artery. Incidental thyroid nodule noted on the right. CT [place] [facility] [place] angiography with contrast, no evidence of saccular aneurysm, high-grade stenosis, or central vascular occlusion involving the anterior-posterior circulation. Lumbar spine x-ray, no metallic devices were seen overlying the imaged abdomen. Thoracic spine x-ray, no radiopaque metal devices seen overlying the mid spine. Thyroid ultrasound, both lobes heterogeneous, 1 cm isoechoic nodule located in the inferior right lobe, tiny hypoechoic nodule in the middle left lobe. Echocardiogram, ejection fraction of 55% to 60% suggested diastolic dysfunction, mild mitral regurgitation, mild tricuspid regurgitation. PRIMARY DIAGNOSIS: Cerebrovascular accident. SECONDARY DIAGNOSES: Left-sided weakness, opioid abuse, history of transient ischemic attack, right-sided weakness, hypertensive urgency, dizziness, tobacco abuse, acute kidney injury, right-sided chest pain, chronic back pain, gastroesophageal reflux disease, glaucoma, hyperlipidemia, history of transient ischemic attack, type 2 diabetes, hypertension, and expressive aphasia. DISCHARGE MEDICATIONS: 1. Aspirin 325 mg p.o. daily. 2. Rosuvastatin 20 mg p.o. DISCONTINUED MEDICATIONS: 1. Hydrocodone-acetaminophen 7.5-325 a day. 2. Tizanidine 2 mg. 3. Losartan 50 mg. 4. Naloxone 0.4 mg. 5. Aspirin 81 mg. 6. Amlodipine 5 mg. 7. Potassium chloride 40 mEq. 8. Lorazepam 1 mg. 9. Pregabalin 100 mg. 10. Nicotine patch 7 mg. 11. Melatonin 3 mg. 12. Rosuvastatin 20 mg. HISTORY OF PRESENT ILLNESS/HOSPITAL COURSE: Ms. Polly Guy is a 63-year-old female with past medical history significant for chronic back pain, glaucoma, daily narcotic abuse, osteoarthritis, hypertension, history of TIA, who presented to the emergency department with a several-day history of weakness, worse on the right side. The patient lived with her daughter who states that she decided to bring her in because she was unable to support herself standing. The daughter denied the patient had any fevers, chills, chest pain, dyspnea, respiratory distress, nausea, vomiting, abdominal pain, or urinary symptoms. The patient's PCP is Dr. Story and the patient's daughter states that she had been receiving Vicodin for chronic pain. The last prescription for Vicodin was written at 90 pills and the daughter states that she checked a bottle a week and half after obtaining the new prescription and then only 20 pills remained. The daughter states that she was unaware if the patient was taking 70 pills. In the emergency department, the patient was given 0.4 mg of Narcan and 1 L of normal saline as well as aspirin. After receiving the Narcan, the patient woke up and became more responsive to questions. CT brain completed in the ED showed no acute findings, small vessel ischemic changes, stable remote lacunar infarctions in each basal ganglia. EKG showed normal sinus rhythm. However, brain MRI showed acute infarct at the junction of left cerebral peduncle and left paramedian magno with microvascular ischemic disease and superimposed multifocal cavitary lacunar infarctions. Neurology was consulted. During the patient's stay, her aphasia and hemiparesis continued to improve. On the day of her discharge, per her daughter, she had returned almost fully to baseline. The patient's hospital stay was complicated by one period in which the patient was told that she was not allowed to smoke, she began to state that she was suicidal and that she would kill herself at the first chance she got. [facility] was consulted and the patient was eventually cleared as she was deemed not a threat to herself or others. Prior to discharge, the patient and the patient's daughter as well as her son were all counseled extensively on the patient's need for tobacco cessation due to her history of multiple cerebrovascular accidents. The patient was discharged to an inpatient rehab facility, [facility]. Upon discharge, her vital signs revealed a temperature of 98.7, pulse 53, respiratory rate of 16, oxygen saturation of 92 L on room air, blood pressure was measured at 134/78. Lab values revealed a white blood cell count of 6.7, hemoglobin 13.4, hematocrit 40.5, platelet count 308. Chemistry panel revealed sodium of 138, potassium 3.6, chloride 105, carbon dioxide 25, BUN 16, creatinine 1.04, glucose 100. Troponins were negative x3. Triglycerides of 118, cholesterol 180, LDL 100, HDL 56. Free T4 0.79 and free T3 2.5. TSH 0.42. DISPOSITION: Stable. DISCHARGE INSTRUCTIONS: 1. Location: [facility]. 2. Diet: Soft diet as the patient only had 2 teeth remaining. 3. Activity: No restrictions, however, the patient will require evaluation and clearance by Physical Therapy and Occupational Therapy. Ambulate with assist may be more a probable activity status. 4. Followup: The patient was advised to follow up with her primary care provider within 2 weeks. Additionally, the patient was advised to follow up with her primary care provider and/or radiologist to reassess the size of her thyroid nodule in 6 months to assess for increases in size or development of worrisome characteristics. Job ID: [id number]
== END 2019-05-19 14:11 | DRG 65 ==
LOC: ERS 14:33 → 2SE 16:32 → OBSVTOIN 16:32
PROVIDERS: ADMIT Family Medicine; ATTEND Family Medicine
DX: I63.9 Cerebral infarction, unspecified (principal); R45.851 Suicidal ideations; G81.91 Hemiplegia, unspecified affecting right dominant side; G89.29 Other chronic pain; M54.9 Dorsalgia, unspecified; E04.1 Nontoxic single thyroid nodule; F11.10 Opioid abuse, uncomplicated; I10 Essential (primary) hypertension; K21.9 Gastro-esophageal reflux disease without esophagitis; M19.90 Unspecified osteoarthritis, unspecified site; H40.9 Unspecified glaucoma; E78.5 Hyperlipidemia, unspecified; F10.120 Alcohol abuse with intoxication, uncomplicated; R29.721 NIHSS score 21; R40.2412 Glasgow coma scale score 13-15, at arrival to emergency department; H54.7 Unspecified visual loss; T40.601A Poisoning by unspecified narcotics, accidental (unintentional), initial encounter; R29.810 Facial weakness; Z79.899 Other long term (current) drug therapy
CPT/HCPCS: 36415; 36416; 70450; 70496; 70498; 70551; 71045; 72020; 76536; 80053; 80061; 80307; 82550; 83735; 83880; 84439; 84443; 84481; 84484; 85007; 85025; 85027; 93005; 93306; 94760; J1650; J2060; J2310; Q9967

== ENCOUNTER 2019-12-27 17:01 | Emergency (ER) | payer MEDICARE, OTHER ==
[2019-12-27] MEDS ORDERED: Aspirin Chewable 81 MG TAB ONE (17:23)
[2019-12-27 17:28] LABS: #Basophils 0.1 thou/uL (0.0-0.2); #Eosinphils 0.2 thou/uL (0.0-0.7); #Lymphocytes 2.4 thou/uL (1.20-3.40); #Monocytes 0.8 thou/uL (0.11-0.59); #Neutrophils 4.3 thou/uL (1.40-6.50); %Basophils 1.2 % (0.0-1.0); %Lymphocytes 30.7 % (21.0-51.0); %Monocytes 9.9 % (0.0-10.0); %Neutrophils 56.2 % (42.0-75.0); Hemoglobin 15.4 g/dL (12.0-16.0); Mean Corpuscular HGB CONC 33.2 g/dL (32.0-36.0); Mean Corpuscular Hemoglobin 32.5 pg (27.0-31.0); Mean Corpuscular Volume 97.7 fL (78.0-98.0); Mean Platelet Volume 7.6 fL (7.4-10.4); Platelet Count 347 thou/uL (130-400); RBC Distribution Width 11.9 % (11.5-14.5); Red Blood Cell (RBC) Count 4.75 mill/uL (4.20-5.40); White Blood Cell (WBC) Count 7.7 thou/uL (4.8-10.8)
--- NOTE | 2019-12-27 17:46 | RAD ---
PORTABLE CHEST: History: Shortness of breath, heart palpitations. Comparison: 05-12-19 FINDINGS: Lung jarvis are clear. Vasculature normal. Heart size normal. IMPRESSION: Unremarkable chest. POS: AGW
[2019-12-27] MEDS ORDERED: Lidocaine Viscous Sol 2% 15 ml UD Cup ONE (17:48)
[2019-12-27 17:50] LABS: ALT (SGPT) 17 U/L (8-55); AST (SGOT) 24 U/L (5-34); Alkaline Phosphatase 92 U/L (40-110); Anion Gap 16 mmol/L (10-20); BUN (Urea Nitrogen) 9 mg/dL (9.8-20.1); Bilirubin, Total 0.5 mg/dL (0.2-1.2); CK (CPK) 90 U/L (29-168); Calc. Creatinine Clearance 0 mL/min (70-130); Calcium 10.2 mg/dL (7.8-10.44); Carbon Dioxide 21 mmol/L (23-31); Chloride 105 mmol/L (98-107); Estimated GFR-MDRD 83; Globulin 3.9 g/dL (2.4-3.5); Glucose 99 mg/dL (80-115); Potassium 3.4 mmol/L (3.5-5.1); Protein, Total 7.9 g/dL (6.0-8.3); Sodium 139 mmol/L (136-145)
[2019-12-27] MEDS ORDERED: Nitroglycerin 2% Ointment 1 INCH/1 GM Packet ONE (17:51)
[2019-12-27] MEDS ORDERED: Pantoprazole 40 MG VIAL ONE ×2 (17:51→17:55)
[2019-12-27] MEDS ORDERED: Mag-Al 1200 mg/1200 mg/30 ML UDCUP ONE (17:51)
[2019-12-27] MEDS ORDERED: Pantoprazole 80 MG, Admixture Fee 1 EACH in Sodium Chloride 0.9% 100 ML IVPB SCH (18:15)
--- NOTE | 2019-12-27 19:50 | PDOC.FPRHP ---
- Allergies/Adverse Reactions Allergies Allergy/AdvReac Type Severity Reaction Status Date / Time No Known Allergies Allergy Verified 11/23/19 07:21 - Home Medications Medication Instructions Recorded Confirmed Type Pregabalin [Lyrica] 100 mg PO BID 03/10/14 05/12/19 History HYDROcodone/Acetaminophen [[place] 1 each PO Q8H PRN 10/12/18 05/12/19 History 7.5-325 Tablet] tiZANidine HCl [Tizanidine HCl] 2 mg PO Q8H PRN 10/12/18 05/12/19 History Amlodipine [Norvasc] 5 mg PO DAILY 05/12/19 05/12/19 History Losartan Potassium [Cozaar] 50 mg PO DAILY 05/12/19 05/12/19 History Aspirin [Ecotrin Regular Strength] 325 mg PO DAILY tab 05/19/19 Rx Rosuvastatin [Crestor] 20 mg PO HS tab 05/19/19 Rx - History PMHx: PSHx: FHx: Social: - Vital signs BP: [] HR: [] RR: [] Tmax: [] Pox: []% on [] Wt: [] FMR H&P: Results - Labs Result Diagrams: 12/27/19 17:19 12/27/19 17:19 Lab results: WBC 7.7 thou/uL (4.8-10.8) 12/27/19 17:19 Hgb 15.4 g/dL (12.0-16.0) 12/27/19 17:19 Hct 46.4 % (36.0-47.0) 12/27/19 17:19 MCV 97.7 fL (78.0-98.0) 12/27/19 17:19 Plt Count 347 thou/uL (130-400) 12/27/19 17:19 Neutrophils % 56.2 % (42.0-75.0) 12/27/19 17:19 Sodium 139 mmol/L (136-145) 12/27/19 17:19 Potassium 3.4 mmol/L (3.5-5.1) L 12/27/19 17:19 Chloride 105 mmol/L (98-107) 12/27/19 17:19 Carbon Dioxide 21 mmol/L (23-31) L 12/27/19 17:19 BUN 9 mg/dL (9.8-20.1) L 12/27/19 17:19 Creatinine 0.83 mg/dL (0.6-1.1) 12/27/19 17:19 Glucose 99 mg/dL (80-115) 12/27/19 17:19 Calcium 10.2 mg/dL (7.8-10.44) 12/27/19 17:19 Total Bilirubin 0.5 mg/dL (0.2-1.2) 12/27/19 17:19 AST 24 U/L (5-34) 12/27/19 17:19 ALT 17 U/L (8-55) 12/27/19 17:19 Alkaline Phosphatase 92 U/L (40-110) 12/27/19 17:19 Creatine Kinase 90 U/L (29-168) 12/27/19 17:19 Serum Total Protein 7.9 g/dL (6.0-8.3) 12/27/19 17:19 Albumin 4.0 g/dL (3.4-4.8) 12/27/19 17:19 FMR H&P: Upper Level - Plan Date/Time: 12/27/191905 I, [], have evaluated this patient and agree with findings/plan as outlined by r d internship resident. Pertinent changes/additions are listed here.
[2019-12-27] MEDS ORDERED: cloNIDine 0.1 MG TAB ONE (19:51)
--- NOTE | 2019-12-27 19:54 | PDOC.BPN ---
- Brief Progress Note Pt was seen and evaluated in the ED by myself 12/26 1899. After taking history and performing physical, I discussed reason for admission was to treat hypertensive urgency, and evaluate CP further, specifically ruling out cardiac cause. She reported her CP resolved and a desire to go home. She is asymptomatic from HTN standpoint. I discussed risks of going home AMA including cardiac cause that could potentially end in and she still wishes to leave. Patient is AOx4 and able to make her own decisions regarding this nature. I discussed with son, Nate Guy, about the situation and he is aware. I told them to return to ED if pain again occurs and to make appt with PCP, SANDIE, this week. I will help coordinate an outpatient visit as well.
--- NOTE | 2019-12-29 13:26 | EKG ---
Test Reason : Blood Pressure : / mmHG Vent. Rate : 078 BPM Atrial Rate : 078 BPM P-R Int : 114 ms QRS Dur : 082 ms QT Int : 380 ms P-R-T Axes : 008 017 036 degrees QTc Int : 433 ms Sinus rhythm with Premature atrial complexes Otherwise normal ECG Confirmed by CHARISSE SCHAFFER ([id number]), editor news JAJA BLACK ([id number]) on 12/29/2019 1:25:41 PM Referred By: Confirmed By:CHARISSE SCHAFFER
== END 2019-12-27 20:28 | disposition home or self-care (01) ==
LOC: ERS 17:01
DX: R07.2 Precordial pain (principal); R06.02 Shortness of breath; K21.9 Gastro-esophageal reflux disease without esophagitis; I10 Essential (primary) hypertension; E11.9 Type 2 diabetes mellitus without complications; I25.2 Old myocardial infarction; F41.9 Anxiety disorder, unspecified; F32.9 Major depressive disorder, single episode, unspecified; F17.210 Nicotine dependence, cigarettes, uncomplicated
CPT/HCPCS: 71045; 80053; 82550; 84484; 85025; 85379; 93005; 96361; 96374; C9113; J3490

== ENCOUNTER 2022-07-17 12:39 | Inpatient (IN) | payer MEDICARE, OTHER ==
[2022-07-17 13:24] LABS: #Basophils 0.1 thou/uL (0.0-0.2); #Lymphocytes 1.8 thou/uL (1.20-3.40); #Monocytes 0.5 thou/uL (0.11-0.59); #Neutrophils 4.1 thou/uL (1.40-6.50); %Basophils 0.8 % (0.0-1.0); %Eosinophils 0.7 % (0.0-10.0); %Lymphocytes 27.6 % (21.0-51.0); %Neutrophils 62.8 % (42.0-75.0); Mean Corpuscular HGB CONC 30.1 g/dL (32.0-36.0); Mean Corpuscular Hemoglobin 26.1 pg (27.0-31.0); Mean Corpuscular Volume 86.7 fl (78.0-98.0); Mean Platelet Volume 7.6 fL (7.4-10.4); Platelet Count 422 10x3/uL (130-400); RBC Distribution Width 16.2 % (11.5-14.5); Red Blood Cell (RBC) Count 3.81 mill/uL (4.20-5.40); White Blood Cell (WBC) Count 6.6 10x3/uL (4.8-10.8)
[2022-07-17] MEDS ORDERED: Morphine 4 MG/ML VIAL ONE (13:27)
[2022-07-17] MEDS ORDERED: Ketorolac Tromethamine 30 MG/ML VIAL ONE (13:28)
[2022-07-17 13:45] LABS: ALT (SGPT) 11 U/L (8-55); AST (SGOT) 16 U/L (5-34); Albumin 3.5 g/dL (3.4-4.8); Alkaline Phosphatase 57 U/L (40-110); Anion Gap 11 mmol/L (10-20); BUN (Urea Nitrogen) 23 mg/dL (9.8-20.1); Bilirubin, Total 0.3 mg/dL (0.2-1.2); Calc. Creatinine Clearance 0 mL/min (70-130); Calcium 9.8 mg/dL (7.8-10.44); Carbon Dioxide 23 mmol/L (23-31); Chloride 107 mmol/L (98-107); Estimated GFR 64; Globulin 3.5 g/dL (2.4-3.5); Glucose 87 mg/dL (80-115); Lipase 16 U/L (8-78); Potassium 4.3 mmol/L (3.5-5.1); Sodium 137 mmol/L (136-145)
[2022-07-17] MEDS ORDERED: Ondansetron PF 4 MG/2 ML Vial ONE (13:55)
[2022-07-17 15:07] LABS: Bilirubin Negative (Negative); Blood, Urine Negative (Negative); Clarity Clear (Clear); Glucose, Urine (Dipstick) Normal (Negative); Ketone, Urine 10 mg/dL (Negative); Leukocyte Negative Leu/uL (Negative); Nitrite Negative (Negative); Protein, Urine (Dipstick) 20 mg/dL (Neg-Trace); Specific Gravity, Urine 1.029 (1.002-1.036); Urobilinogen 6 mg/dL (Less than 2); pH, Urine 6.5 (5.0-9.0)
[2022-07-17] MEDS ORDERED: Ondansetron PF 4 MG/2 ML Vial IVP PRN (15:28)
[2022-07-17] MEDS ORDERED: Ondansetron ODT 4 MG TAB PO PRN (15:28)
[2022-07-17] MEDS ORDERED: Senokot S 8.6-50 MG TAB PO PRN (15:28)
[2022-07-17] MEDS ORDERED: HumaLOG 300 UNITS/3 ML VIAL SC PRN (15:34)
[2022-07-17] MEDS ORDERED: Dextrose 5% in Water 1,000 ML IV PRN (15:34)
[2022-07-17] MEDS ORDERED: Dextrose 50% Abboject 50 ML SYRINGE SLOW IVP PRN (15:34)
[2022-07-17] MEDS ORDERED: Insulin Regular 300 UNITS/3 ML VIAL SC PRN (15:34)
[2022-07-17 17:26] VITALS: BMI 27.5
[2022-07-17 17:41] LABS: Troponin I Less than 0.010 ng/mL (< 0.028)
[2022-07-17] MEDS: Nitroglycerin 2% Ointment 1 INCH/1 GM Packet TOP SCH (20:09)
[2022-07-17] MEDS: Pregabalin 50 MG CAP PO SCH (20:10)
[2022-07-17] MEDS: Rosuvastatin 20 MG TAB PO SCH (20:10)
[2022-07-17 20:43] LABS: Troponin I Less than 0.010 ng/mL (< 0.028)
[2022-07-17] MEDS: tiZANidine HCl 4 MG TAB PO SCH (21:27)
[2022-07-18] MEDS: Acetaminophen 325 MG TAB PO PRN (04:28)
[2022-07-18 05:22] LABS: #Basophils 0.1 thou/uL (0.0-0.2); #Eosinphils 0.1 thou/uL (0.0-0.7); #Lymphocytes 2.8 thou/uL (1.20-3.40); #Monocytes 0.7 thou/uL (0.11-0.59); #Neutrophils 4.5 thou/uL (1.40-6.50); %Basophils 0.6 % (0.0-1.0); %Eosinophils 1.5 % (0.0-10.0); %Lymphocytes 34.4 % (21.0-51.0); %Monocytes 8.3 % (0.0-10.0); %Neutrophils 55.3 % (42.0-75.0); Hemoglobin 10.1 g/dL (12.0-16.0); Mean Corpuscular HGB CONC 30.7 g/dL (32.0-36.0); Mean Corpuscular Volume 87.9 fl (78.0-98.0); Mean Platelet Volume 7.6 fL (7.4-10.4); Platelet Count 420 10x3/uL (130-400); RBC Distribution Width 16.5 % (11.5-14.5); Red Blood Cell (RBC) Count 3.74 mill/uL (4.20-5.40); White Blood Cell (WBC) Count 8.2 10x3/uL (4.8-10.8)
[2022-07-18 05:23] LABS: Hemoglobin A1c 5.3 % (4.0-6.0)
[2022-07-18 05:56] LABS: ALT (SGPT) 9 U/L (8-55); AST (SGOT) 18 U/L (5-34); Albumin 3.3 g/dL (3.4-4.8); Alkaline Phosphatase 59 U/L (40-110); Anion Gap 10 mmol/L (10-20); BUN (Urea Nitrogen) 20 mg/dL (9.8-20.1); Bilirubin, Total 0.4 mg/dL (0.2-1.2); Calc. Creatinine Clearance 45 mL/min (70-130); Calcium 9.1 mg/dL (7.8-10.44); Carbon Dioxide 26 mmol/L (23-31); Cardiac Risk 3.6 (Less than 4.5); Chloride 102 mmol/L (98-107); Cholesterol 167 mg/dl (< 200 Desired); Estimated GFR 39; Globulin 3.3 g/dL (2.4-3.5); Glucose 91 mg/dL (80-115); HDL Cholesterol 47 mg/dL (>60 Neg Risk); LDL Cholesterol, Calculated 94 mg/dL; Potassium 3.5 mmol/L (3.5-5.1); Protein, Total 6.6 g/dL (5.8-8.1); Sodium 134 mmol/L (136-145); Triglycerides 131 mg/dL (Less than 150)
[2022-07-18] MEDS ORDERED: Sodium Chloride 0.9% 500 ML IV SCH (07:30)
[2022-07-18] MEDS ORDERED: Lisinopril 10 MG TAB PO SCH (09:00)
[2022-07-18] MEDS ORDERED: Losartan 25 MG TAB PO SCH (09:00)
[2022-07-18] MEDS ORDERED: Amlodipine 5 MG TAB PO SCH (09:00)
[2022-07-18] MEDS: Aspirin 325 mg Enteric Coated Tablet PO SCH (09:17)
[2022-07-18] MEDS: Enoxaparin Sodium 40 MG/0.4 ML SYRINGE SC SCH (09:17)
[2022-07-18] MEDS: Famotidine 20 MG TAB PO SCH (09:17)
[2022-07-18] MEDS: tiZANidine HCl 4 MG TAB PO SCH ×2 (09:17→20:13)
[2022-07-18] MEDS: Pregabalin 50 MG CAP PO SCH ×2 (09:17→20:12)
[2022-07-18 11:33] LABS: #Eosinphils 0.1 thou/uL (0.0-0.7); #Lymphocytes 1.9 thou/uL (1.20-3.40); #Monocytes 0.5 thou/uL (0.11-0.59); #Neutrophils 3.5 thou/uL (1.40-6.50); %Basophils 0.8 % (0.0-1.0); %Eosinophils 1.5 % (0.0-10.0); %Lymphocytes 31.2 % (21.0-51.0); %Neutrophils 57.6 % (42.0-75.0); Hemoglobin 9.7 g/dL (12.0-16.0); Mean Corpuscular HGB CONC 31.3 g/dL (32.0-36.0); Mean Corpuscular Hemoglobin 27.5 pg (27.0-31.0); Mean Corpuscular Volume 87.8 fl (78.0-98.0); Mean Platelet Volume 7.4 fL (7.4-10.4); Platelet Count 402 10x3/uL (130-400); RBC Distribution Width 16.3 % (11.5-14.5); Red Blood Cell (RBC) Count 3.52 mill/uL (4.20-5.40)
[2022-07-18 11:41] LABS: Anion Gap 13 mmol/L (10-20); BUN (Urea Nitrogen) 21 mg/dL (9.8-20.1); Calc. Creatinine Clearance 50 mL/min (70-130); Calcium 8.5 mg/dL (7.8-10.44); Carbon Dioxide 20 mmol/L (23-31); Chloride 106 mmol/L (98-107); Estimated GFR 44; Glucose 130 mg/dL (80-115); Potassium 3.6 mmol/L (3.5-5.1); Sodium 135 mmol/L (136-145)
[2022-07-18 11:57] LABS: Actual Bicarbonate (HCO3v) 21 mEq/L (22-28); Base Excess -4.4 mEq/L (-2.0 to +3.0); Calcium, Ionized (venous) 1.15 mmol/L (1.16-1.32); Chloride (VBG) 106 mmol/L (98-106); Hemoglobin (Hb) 10.3 g/dL (11.7-16.1); Potassium (VBG) 3.64 mmol/L (3.70-5.30); Sodium 134.8 mmol/L (133-146); pH (venous) 7.34 (7.32-7.43)
[2022-07-18 12:01] LABS: Troponin I 0.014 ng/mL (< 0.028)
[2022-07-18 14:37] LABS: Free T4 (Free Thyroxine) 1.01 ng/dL (0.70-1.48); Thyroid Stimulating Hormone 0.858 uIU/mL (0.35-4.94)
[2022-07-18] MEDS: Nitroglycerin 2% Ointment 1 INCH/1 GM Packet TOP SCH ×2 (15:06→21:18)
[2022-07-18] MEDS: Nicotine 21 MG PATCH TD SCH (15:07)
[2022-07-18] MEDS: Rosuvastatin 20 MG TAB PO SCH (20:13)
[2022-07-19] MEDS: Acetaminophen 325 MG TAB PO PRN ×2 (04:22→22:25)
[2022-07-19] MEDS: Nicotine 21 MG PATCH TD SCH (09:00)
[2022-07-19] MEDS: tiZANidine HCl 4 MG TAB PO SCH ×2 (09:00→21:21)
[2022-07-19] MEDS: Enoxaparin Sodium 40 MG/0.4 ML SYRINGE SC SCH (09:00)
[2022-07-19] MEDS: Nitroglycerin 2% Ointment 1 INCH/1 GM Packet TOP SCH ×2 (09:00→21:21)
[2022-07-19] MEDS: Famotidine 20 MG TAB PO SCH (09:00)
[2022-07-19] MEDS: Pregabalin 50 MG CAP PO SCH ×2 (09:00→21:20)
[2022-07-19] MEDS: Aspirin 325 mg Enteric Coated Tablet PO SCH (09:00)
[2022-07-19] MEDS ORDERED: Electrolyte Replacement Protocol 1 EACH FS PRN (14:06)
[2022-07-19 14:24] LABS: #Eosinphils 0.1 thou/uL (0.0-0.7); #Lymphocytes 2.3 thou/uL (1.20-3.40); #Monocytes 0.5 thou/uL (0.11-0.59); #Neutrophils 3.1 thou/uL (1.40-6.50); %Basophils 0.8 % (0.0-1.0); %Eosinophils 2.3 % (0.0-10.0); %Lymphocytes 37.6 % (21.0-51.0); %Monocytes 8.6 % (0.0-10.0); %Neutrophils 50.7 % (42.0-75.0); Hemoglobin 10.1 g/dL (12.0-16.0); Mean Corpuscular HGB CONC 30.8 g/dL (32.0-36.0); Mean Corpuscular Hemoglobin 26.9 pg (27.0-31.0); Mean Corpuscular Volume 87.2 fl (78.0-98.0); Mean Platelet Volume 7.5 fL (7.4-10.4); Platelet Count 396 10x3/uL (130-400); RBC Distribution Width 16.6 % (11.5-14.5); Red Blood Cell (RBC) Count 3.74 mill/uL (4.20-5.40)
[2022-07-19 14:49] LABS: ALT (SGPT) 10 U/L (8-55); AST (SGOT) 21 U/L (5-34); Albumin 3.3 g/dL (3.4-4.8); Alkaline Phosphatase 55 U/L (40-110); Anion Gap 10 mmol/L (10-20); BUN (Urea Nitrogen) 18 mg/dL (9.8-20.1); Bilirubin, Total 0.3 mg/dL (0.2-1.2); Calc. Creatinine Clearance 65 mL/min (70-130); Calcium 9.2 mg/dL (7.8-10.44); Carbon Dioxide 24 mmol/L (23-31); Chloride 107 mmol/L (98-107); Estimated GFR 59; Globulin 3.4 g/dL (2.4-3.5); Glucose 84 mg/dL (80-115); Protein, Total 6.7 g/dL (5.8-8.1); Sodium 137 mmol/L (136-145)
[2022-07-19] MEDS: hydrALAZINE 20 MG/ML VIAL SLOW IVP PRN (14:51)
[2022-07-19 14:53] LABS: Magnesium 2.1 mg/dL (1.6-2.6)
[2022-07-19] MEDS: Rosuvastatin 20 MG TAB PO SCH (21:20)
[2022-07-20] MEDS ORDERED: Ketorolac Tromethamine 30 MG/ML VIAL IVP SCH (05:45)
[2022-07-20 06:25] LABS: #Eosinphils 0.3 thou/uL (0.0-0.7); #Lymphocytes 2.7 thou/uL (1.20-3.40); #Monocytes 0.7 thou/uL (0.11-0.59); #Neutrophils 3.7 thou/uL (1.40-6.50); %Basophils 0.1 % (0.0-1.0); %Eosinophils 3.5 % (0.0-10.0); %Lymphocytes 36.9 % (21.0-51.0); %Monocytes 9.9 % (0.0-10.0); %Neutrophils 49.7 % (42.0-75.0); Hemoglobin 9.3 g/dL (12.0-16.0); Mean Corpuscular HGB CONC 29.4 g/dL (32.0-36.0); Mean Corpuscular Hemoglobin 26.1 pg (27.0-31.0); Mean Corpuscular Volume 88.7 fl (78.0-98.0); Mean Platelet Volume 7.8 fL (7.4-10.4); Platelet Count 392 10x3/uL (130-400); RBC Distribution Width 16.9 % (11.5-14.5); Red Blood Cell (RBC) Count 3.58 mill/uL (4.20-5.40); White Blood Cell (WBC) Count 7.4 10x3/uL (4.8-10.8)
[2022-07-20 06:54] LABS: ALT (SGPT) 9 U/L (8-55); AST (SGOT) 17 U/L (5-34); Alkaline Phosphatase 52 U/L (40-110); Anion Gap 10 mmol/L (10-20); BUN (Urea Nitrogen) 18 mg/dL (9.8-20.1); Bilirubin, Total 0.2 mg/dL (0.2-1.2); Calc. Creatinine Clearance 58 mL/min (70-130); Calcium 8.8 mg/dL (7.8-10.44); Carbon Dioxide 24 mmol/L (23-31); Chloride 108 mmol/L (98-107); Estimated GFR 52; Glucose 100 mg/dL (80-115); Phosphorus 3.1 mg/dL (2.3-4.7); Potassium 4.1 mmol/L (3.5-5.1); Sodium 138 mmol/L (136-145)
[2022-07-20] MEDS: Nitroglycerin 2% Ointment 1 INCH/1 GM Packet TOP SCH (09:12)
[2022-07-20] MEDS: Aspirin 325 mg Enteric Coated Tablet PO SCH (09:13)
[2022-07-20] MEDS: Enoxaparin Sodium 40 MG/0.4 ML SYRINGE SC SCH (09:13)
[2022-07-20] MEDS: Pregabalin 50 MG CAP PO SCH ×2 (09:13→20:56)
[2022-07-20] MEDS: Famotidine 20 MG TAB PO SCH (09:13)
[2022-07-20] MEDS: tiZANidine HCl 4 MG TAB PO SCH ×2 (09:14→20:56)
[2022-07-20] MEDS: Nicotine 21 MG PATCH TD SCH (09:15)
[2022-07-20] MEDS ORDERED: Calcium Carbonate 500 MG ChewTAB PO PRN (09:33)
[2022-07-20] MEDS ORDERED: Magnesium 2 GM/50 ML(in water) 2 GM in Premix Bag 1 BAG IVPB SCH (10:15)
[2022-07-20] MEDS ORDERED: FLU VACC QS2022-23(65YR UP)/PF 240 MCG/0.7 ML SYRINGE IM ONE (17:45)
[2022-07-20] MEDS: Melatonin 3 MG TAB PO SCH (20:56)
[2022-07-20] MEDS: Rosuvastatin 20 MG TAB PO SCH (20:56)
[2022-07-21 06:43] LABS: #Eosinphils 0.2 thou/uL (0.0-0.7); #Monocytes 0.5 thou/uL (0.11-0.59); #Neutrophils 2.8 thou/uL (1.40-6.50); %Basophils 0.2 % (0.0-1.0); %Eosinophils 2.8 % (0.0-10.0); %Lymphocytes 36.5 % (21.0-51.0); %Monocytes 8.6 % (0.0-10.0); %Neutrophils 51.9 % (42.0-75.0); Hemoglobin 9.4 g/dL (12.0-16.0); Mean Corpuscular HGB CONC 31.2 g/dL (32.0-36.0); Mean Corpuscular Hemoglobin 27.4 pg (27.0-31.0); Mean Corpuscular Volume 87.8 fl (78.0-98.0); Mean Platelet Volume 7.6 fL (7.4-10.4); Platelet Count 352 10x3/uL (130-400); RBC Distribution Width 16.7 % (11.5-14.5); Red Blood Cell (RBC) Count 3.41 mill/uL (4.20-5.40); White Blood Cell (WBC) Count 5.4 10x3/uL (4.8-10.8)
[2022-07-21 07:04] LABS: Anion Gap 10 mmol/L (10-20); BUN (Urea Nitrogen) 22 mg/dL (9.8-20.1); Calc. Creatinine Clearance 65 mL/min (70-130); Calcium 8.7 mg/dL (7.8-10.44); Carbon Dioxide 25 mmol/L (23-31); Chloride 108 mmol/L (98-107); Estimated GFR 57; Glucose 102 mg/dL (80-115); Potassium 3.9 mmol/L (3.5-5.1); Sodium 139 mmol/L (136-145)
[2022-07-21 08:26] LABS: Magnesium 2.2 mg/dL (1.6-2.6)
[2022-07-21] MEDS: Aspirin 325 mg Enteric Coated Tablet PO SCH (08:39)
[2022-07-21] MEDS: Famotidine 20 MG TAB PO SCH (08:40)
[2022-07-21] MEDS: Pregabalin 50 MG CAP PO SCH ×2 (08:41→21:38)
[2022-07-21] MEDS: Morphine 4 MG/ML VIAL SLOW IVP PRN (08:43)
[2022-07-21] MEDS: Nicotine 21 MG PATCH TD SCH (08:43)
[2022-07-21] MEDS: Enoxaparin Sodium 40 MG/0.4 ML SYRINGE SC SCH (10:13)
[2022-07-21] MEDS: tiZANidine HCl 4 MG TAB PO SCH ×2 (10:13→21:51)
[2022-07-21] MEDS ORDERED: Dextrose 50% Abboject 50 ML SYRINGE SLOW IVP PRN (10:49)
[2022-07-21] MEDS ORDERED: Insulin Regular 300 UNITS/3 ML VIAL SC PRN (10:49)
[2022-07-21] MEDS ORDERED: Dextrose 5% in Water 1,000 ML IV PRN (10:49)
[2022-07-21] MEDS ORDERED: Communication Order-Pharmacy FS SCH (21:00)
[2022-07-21] MEDS: Melatonin 3 MG TAB PO SCH (21:38)
[2022-07-21] MEDS: Rosuvastatin 20 MG TAB PO SCH (21:39)
[2022-07-22 06:19] LABS: #Eosinphils 0.2 thou/uL (0.0-0.7); #Lymphocytes 2.3 thou/uL (1.20-3.40); #Monocytes 0.5 thou/uL (0.11-0.59); #Neutrophils 3.1 thou/uL (1.40-6.50); %Basophils 0.6 % (0.0-1.0); %Eosinophils 3.6 % (0.0-10.0); %Lymphocytes 37.1 % (21.0-51.0); %Monocytes 7.7 % (0.0-10.0); Mean Corpuscular HGB CONC 30.8 g/dL (32.0-36.0); Mean Corpuscular Volume 87.4 fl (78.0-98.0); Mean Platelet Volume 8.1 fL (7.4-10.4); Platelet Count 356 10x3/uL (130-400); RBC Distribution Width 16.7 % (11.5-14.5); Red Blood Cell (RBC) Count 3.32 mill/uL (4.20-5.40); White Blood Cell (WBC) Count 6.1 10x3/uL (4.8-10.8)
[2022-07-22] MEDS ORDERED: Lidocaine 1% PF 5 ML VIAL ONE (06:22)
[2022-07-22] MEDS ORDERED: Nitroglycerin 100MG/250ML BOT 250 ML ONE (06:22)
[2022-07-22] MEDS ORDERED: Verapamil 5 MG/2 ML VIAL ONE (06:22)
[2022-07-22] MEDS ORDERED: Heparin 10,000 UNITS/ 10 ML VIAL ONE (06:22)
[2022-07-22] MEDS ORDERED: Fentanyl 100 MCG/2 ML VIAL ONE (06:33)
[2022-07-22] MEDS ORDERED: Midazolam HCl 2 mg/2 ml Vial ONE (06:33)
[2022-07-22 06:44] LABS: Anion Gap 8 mmol/L (10-20); BUN (Urea Nitrogen) 16 mg/dL (9.8-20.1); Calc. Creatinine Clearance 68 mL/min (70-130); Calcium 8.6 mg/dL (7.8-10.44); Carbon Dioxide 26 mmol/L (23-31); Chloride 108 mmol/L (98-107); Estimated GFR 61; Glucose 100 mg/dL (80-115); Sodium 138 mmol/L (136-145)
[2022-07-22] MEDS ORDERED: Acetaminophen/Codeine 30-300mg Tablet PO PRN (08:29)
[2022-07-22] MEDS ORDERED: Nitroglycerin 0.4 MG TAB (25 Tab Bottle) SL PRN (08:29)
[2022-07-22] MEDS ORDERED: Sodium Chloride 0.9% 250 ML 200 ML IV PRN (08:32)
[2022-07-22] MEDS: Nicotine 21 MG PATCH TD SCH (09:50)
[2022-07-22] MEDS: Aspirin 325 mg Enteric Coated Tablet PO SCH (09:53)
[2022-07-22] MEDS: Pregabalin 50 MG CAP PO SCH ×2 (09:53→20:41)
[2022-07-22] MEDS: Acetaminophen/Codeine 30-300mg Tablet PO PRN (09:54)
[2022-07-22] MEDS: tiZANidine HCl 4 MG TAB PO SCH ×2 (09:55→21:00)
[2022-07-22] MEDS: Famotidine 20 MG TAB PO SCH (09:57)
[2022-07-22] MEDS ORDERED: CEFAZOLIN 2 GM in Sodium Chloride 0.9% 100 ML IVPB SCH (15:30)
[2022-07-22] MEDS: Acetaminophen 325 MG TAB PO PRN (15:43)
[2022-07-22] MEDS: Melatonin 3 MG TAB PO SCH (20:41)
[2022-07-22] MEDS: Rosuvastatin 20 MG TAB PO SCH (20:41)
[2022-07-23] MEDS: Morphine 4 MG/ML VIAL SLOW IVP PRN (01:57)
[2022-07-23] MEDS: hydrALAZINE 20 MG/ML VIAL SLOW IVP PRN (04:12)
[2022-07-23] MEDS ORDERED: CEFAZOLIN 1 GM VIAL ONE (06:22)
[2022-07-23] MEDS ORDERED: Lidocaine 1% (PF) 30 ML VIAL ONE (06:22)
[2022-07-23] MEDS ORDERED: Gentamicin 80 MG/2 ML VIAL ONE (06:22)
[2022-07-23] MEDS ORDERED: FENTANYL 50 MCG/ML 1 ML VIAL ONE (06:58)
[2022-07-23] MEDS ORDERED: Midazolam HCl 2 mg/2 ml Vial ONE ×2 (06:58→07:30)
[2022-07-23 08:53] LABS: #Eosinphils 0.1 thou/uL (0.0-0.7); #Lymphocytes 1.4 thou/uL (1.20-3.40); #Monocytes 0.5 thou/uL (0.11-0.59); #Neutrophils 4.2 thou/uL (1.40-6.50); %Basophils 0.5 % (0.0-1.0); %Lymphocytes 23.2 % (21.0-51.0); %Monocytes 8.4 % (0.0-10.0); Hemoglobin 10.6 g/dL (12.0-16.0); Mean Corpuscular HGB CONC 30.5 g/dL (32.0-36.0); Mean Corpuscular Hemoglobin 26.8 pg (27.0-31.0); Mean Corpuscular Volume 87.8 fl (78.0-98.0); Mean Platelet Volume 8.1 fL (7.4-10.4); Platelet Count 400 10x3/uL (130-400); RBC Distribution Width 16.7 % (11.5-14.5); Red Blood Cell (RBC) Count 3.96 mill/uL (4.20-5.40); White Blood Cell (WBC) Count 6.2 10x3/uL (4.8-10.8)
[2022-07-23] MEDS ORDERED: Metoprolol Tartrate 25 MG TAB PO SCH ×2 (09:00)
[2022-07-23] MEDS: Pregabalin 50 MG CAP PO SCH (09:09)
[2022-07-23] MEDS: Acetaminophen 325 MG TAB PO PRN ×2 (09:10→17:32)
[2022-07-23] MEDS: Aspirin 325 mg Enteric Coated Tablet PO SCH (09:10)
[2022-07-23] MEDS: tiZANidine HCl 4 MG TAB PO SCH ×2 (09:11→20:36)
[2022-07-23] MEDS: Nicotine 21 MG PATCH TD SCH (09:11)
[2022-07-23 09:14] LABS: Anion Gap 11 mmol/L (10-20); BUN (Urea Nitrogen) 12 mg/dL (9.8-20.1); Calc. Creatinine Clearance 72 mL/min (70-130); Calcium 9.4 mg/dL (7.8-10.44); Carbon Dioxide 24 mmol/L (23-31); Chloride 109 mmol/L (98-107); Estimated GFR 64; Glucose 110 mg/dL (80-115); Potassium 4.1 mmol/L (3.5-5.1); Sodium 140 mmol/L (136-145)
[2022-07-23] MEDS ORDERED: Temazepam 15 MG CAP PO PRN (10:26)
[2022-07-23] MEDS ORDERED: Fioricet 325/50/40 mg Tablet PO PRN (10:26)
[2022-07-23] MEDS ORDERED: Sodium Chloride 0.9% 500 ML IV SCH ×2 (13:00)
[2022-07-23] MEDS: Melatonin 3 MG TAB PO SCH (20:36)
[2022-07-23] MEDS: Rosuvastatin 20 MG TAB PO SCH (20:36)
[2022-07-23] MEDS: Acetaminophen/Codeine 30-300mg Tablet PO PRN (22:37)
[2022-07-24] MEDS: Acetaminophen/Codeine 30-300mg Tablet PO PRN (04:18)
[2022-07-24] MEDS: tiZANidine HCl 4 MG TAB PO SCH (09:23)
[2022-07-24] MEDS: Nicotine 21 MG PATCH TD SCH (09:23)
[2022-07-24] MEDS: Aspirin 325 mg Enteric Coated Tablet PO SCH (09:23)
[2022-07-24 11:53] VITALS: BP 140/58; TEMP 97.1
[2022-07-24] MEDS ORDERED: Lidocaine 2% Viscous Solution 20 ML, Aluminum & Magnesium Hydroxide 30 ML, Donnatal Eli... SSW SCH (14:00)
== END 2022-07-24 16:19 | disposition home or self-care (01) | DRG 243 ==
LOC: ERS 12:39 → SUATTDRO 12:39 → 2SW 15:31 → OBSVTOIN 07-18 11:10 → CCU 07-18 12:31 → NEURO 07-19 20:47
PROVIDERS: ADMIT Family Medicine; ATTEND Family Medicine
PROC: 4A023N7 Measurement of Cardiac Sampling and Pressure, Left Heart, Percutaneous Approach (ICD-10-PCS; principal; 2022-07-22)
PROC: B2151ZZ Fluoroscopy of Left Heart using Low Osmolar Contrast (ICD-10-PCS; 2022-07-22)
PROC: B2111ZZ Fluoroscopy of Multiple Coronary Arteries using Low Osmolar Contrast (ICD-10-PCS; 2022-07-22)
PROC: 0JH606Z Insertion of Pacemaker, Dual Chamber into Chest Subcutaneous Tissue and Fascia, Open Approach (ICD-10-PCS; 2022-07-23)
PROC: 02H60JZ Insertion of Pacemaker Lead into Right Atrium, Open Approach (ICD-10-PCS; 2022-07-23)
PROC: 02HK0JZ Insertion of Pacemaker Lead into Right Ventricle, Open Approach (ICD-10-PCS; 2022-07-23)
DX: R00.1 Bradycardia, unspecified (principal); N17.9 Acute kidney failure, unspecified; R07.89 Other chest pain; I10 Essential (primary) hypertension; E78.5 Hyperlipidemia, unspecified; E11.9 Type 2 diabetes mellitus without complications; D64.9 Anemia, unspecified; F17.210 Nicotine dependence, cigarettes, uncomplicated; F41.9 Anxiety disorder, unspecified; F32.A Depression, unspecified; H54.7 Unspecified visual loss; E78.00 Pure hypercholesterolemia, unspecified; I95.9 Hypotension, unspecified; I25.2 Old myocardial infarction; Z86.73 Personal history of transient ischemic attack (TIA), and cerebral infarction without residual deficits; Z79.899 Other long term (current) drug therapy
CPT/HCPCS: 33208; 36415; 36416; 70450; 71045; 80048; 80053; 80061; 81003; 82533; 82805; 83036; 83605; 83690; 83735; 83880; 84100; 84145; 84439; 84443; 84481; 84484; 85025; 85379; 87040; 90471; 90662; 93005; 93010; 93306; 93458; 94760; 96372; 96374; 96375; 97139; 99152; 99153; C1887; C1894; G0008; G0378; J0360; J0690; J1580; J1644; J1650; J1885; J2001; J2250; J2270; J2405; J3010; J3475; J7030; J7050; U0003; U0005

== ENCOUNTER 2022-07-29 18:51 | Emergency (ER) | payer OTHER ==
[2022-07-29 20:28] LABS: #Eosinphils 0.2 thou/uL (0.0-0.7); #Lymphocytes 1.9 thou/uL (1.20-3.40); #Monocytes 0.7 thou/uL (0.11-0.59); #Neutrophils 2.9 thou/uL (1.40-6.50); %Basophils 0.2 % (0.0-1.0); %Eosinophils 3.3 % (0.0-10.0); %Lymphocytes 32.9 % (21.0-51.0); %Monocytes 12.1 % (0.0-10.0); %Neutrophils 51.5 % (42.0-75.0); Hemoglobin 10.5 g/dL (12.0-16.0); Mean Corpuscular HGB CONC 31.3 g/dL (32.0-36.0); Mean Corpuscular Hemoglobin 27.6 pg (27.0-31.0); Mean Corpuscular Volume 88.2 fl (78.0-98.0); Mean Platelet Volume 7.5 fL (7.4-10.4); Platelet Count 291 10x3/uL (130-400); RBC Distribution Width 16.5 % (11.5-14.5); White Blood Cell (WBC) Count 5.7 10x3/uL (4.8-10.8)
[2022-07-29 21:00] LABS: ALT (SGPT) 14 U/L (8-55); AST (SGOT) 26 U/L (5-34); Albumin 3.4 g/dL (3.4-4.8); Alkaline Phosphatase 62 U/L (40-110); Anion Gap 11 mmol/L (10-20); BUN (Urea Nitrogen) 10 mg/dL (9.8-20.1); Bilirubin, Total 0.2 mg/dL (0.2-1.2); Calc. Creatinine Clearance 0 mL/min (70-130); Calcium 9.3 mg/dL (7.8-10.44); Carbon Dioxide 25 mmol/L (23-31); Chloride 108 mmol/L (98-107); Estimated GFR 76; Glucose 95 mg/dL (80-115); Potassium 3.9 mmol/L (3.5-5.1); Sodium 140 mmol/L (136-145)
[2022-07-29 21:22] LABS: Globulin 3.7 g/dL (2.4-3.5); Protein, Total 7.1 g/dL (5.8-8.1)
== END 2022-07-29 22:13 | disposition home or self-care (01) ==
LOC: ERS 18:51
DX: R07.9 Chest pain, unspecified (principal); K21.9 Gastro-esophageal reflux disease without esophagitis; E11.9 Type 2 diabetes mellitus without complications; F17.210 Nicotine dependence, cigarettes, uncomplicated
CPT/HCPCS: 36415; 71045; 80053; 84484; 85025; 93005

== ENCOUNTER 2022-08-11 15:13 | Observation (INO) | payer OTHER ==
[2022-08-11 15:48] LABS: #Basophils 0.1 thou/uL (0.0-0.2); #Eosinphils 0.1 thou/uL (0.0-0.7); #Monocytes 0.5 thou/uL (0.11-0.59); #Neutrophils 2.8 thou/uL (1.40-6.50); %Eosinophils 1.3 % (0.0-10.0); %Lymphocytes 36.3 % (21.0-51.0); %Monocytes 9.8 % (0.0-10.0); %Neutrophils 51.7 % (42.0-75.0); Hemoglobin 9.9 g/dL (12.0-16.0); Mean Corpuscular HGB CONC 30.5 g/dL (32.0-36.0); Mean Corpuscular Hemoglobin 26.2 pg (27.0-31.0); Mean Corpuscular Volume 85.8 fl (78.0-98.0); Mean Platelet Volume 7.7 fL (7.4-10.4); Platelet Count 411 10x3/uL (130-400); RBC Distribution Width 15.8 % (11.5-14.5); Red Blood Cell (RBC) Count 3.78 mill/uL (4.20-5.40); White Blood Cell (WBC) Count 5.4 10x3/uL (4.8-10.8)
[2022-08-11] MEDS ORDERED: Acetaminophen/Codeine 30-300mg Tablet ONE (16:03)
[2022-08-11 16:10] LABS: ALT (SGPT) 11 U/L (8-55); AST (SGOT) 18 U/L (5-34); Albumin 3.5 g/dL (3.4-4.8); Alkaline Phosphatase 59 U/L (40-110); Anion Gap 11 mmol/L (10-20); BUN (Urea Nitrogen) 10 mg/dL (9.8-20.1); Bilirubin, Total 0.3 mg/dL (0.2-1.2); Calc. Creatinine Clearance 0 mL/min (70-130); Calcium 9.3 mg/dL (7.8-10.44); Carbon Dioxide 22 mmol/L (23-31); Chloride 109 mmol/L (98-107); Estimated GFR 71; Globulin 3.3 g/dL (2.4-3.5); Glucose 105 mg/dL (80-115); Lipase 31 U/L (8-78); Potassium 3.5 mmol/L (3.5-5.1); Protein, Total 6.8 g/dL (5.8-8.1); Sodium 138 mmol/L (136-145)
[2022-08-11] MEDS ORDERED: Nitroglycerin 2% Ointment 1 INCH/1 GM Packet ONE (16:15)
[2022-08-11] MEDS ORDERED: Calcium Carbonate 500 MG ChewTAB PO PRN (19:41)
[2022-08-11] MEDS ORDERED: Ondansetron ODT 4 MG TAB PO PRN (19:41)
[2022-08-11] MEDS ORDERED: Acetaminophen 650 MG Suppository PR PRN (19:41)
[2022-08-11] MEDS ORDERED: Ondansetron PF 4 MG/2 ML Vial IVP PRN (19:41)
[2022-08-11] MEDS ORDERED: Lidocaine 2% Viscous Solution 10 ML, Aluminum & Magnesium Hydroxide 30 ML SSW SCH (20:00)
[2022-08-11] MEDS ORDERED: hydrALAZINE 10 MG TAB PO PRN (20:29)
[2022-08-11] MEDS ORDERED: Melatonin 3 MG TAB PO PRN (20:34)
[2022-08-11] MEDS ORDERED: tiZANidine HCl 4 MG TAB PO PRN (20:36)
[2022-08-11] MEDS: Acetaminophen 325 MG TAB PO PRN (21:23)
[2022-08-11 21:59] LABS: Iron 22 ug/dL (50-170); Iron Binding Capacity, Total 345 mcg/dL (265-497)
[2022-08-11 22:11] VITALS: BMI 31.1
[2022-08-12] MEDS: Ibuprofen 600 MG TAB PO PRN ×2 (01:11→09:08)
[2022-08-12] MEDS ORDERED: hydrOXYzine 25 MG TAB PO SCH (01:45)
[2022-08-12 03:04] LABS: SARS-CoV-2 NAA Rapid Test DETECTED (NotDetected)
[2022-08-12 05:25] LABS: #Eosinphils 0.1 thou/uL (0.0-0.7); #Lymphocytes 2.5 thou/uL (1.20-3.40); #Monocytes 0.6 thou/uL (0.11-0.59); %Basophils 0.8 % (0.0-1.0); %Eosinophils 2.8 % (0.0-10.0); %Lymphocytes 47.7 % (21.0-51.0); %Monocytes 10.8 % (0.0-10.0); Hemoglobin 9.2 g/dL (12.0-16.0); Mean Corpuscular Hemoglobin 26.4 pg (27.0-31.0); Mean Corpuscular Volume 85.1 fl (78.0-98.0); Mean Platelet Volume 7.8 fL (7.4-10.4); Platelet Count 406 10x3/uL (130-400); RBC Distribution Width 15.8 % (11.5-14.5); Red Blood Cell (RBC) Count 3.48 mill/uL (4.20-5.40); White Blood Cell (WBC) Count 5.3 10x3/uL (4.8-10.8)
[2022-08-12 05:40] LABS: Anion Gap 9 mmol/L (10-20); BUN (Urea Nitrogen) 12 mg/dL (9.8-20.1); Calc. Creatinine Clearance 78 mL/min (70-130); Calcium 8.7 mg/dL (7.8-10.44); Carbon Dioxide 21 mmol/L (23-31); Chloride 111 mmol/L (98-107); Estimated GFR 76; Glucose 101 mg/dL (80-115); Potassium 3.3 mmol/L (3.5-5.1); Sodium 138 mmol/L (136-145)
[2022-08-12] MEDS ORDERED: Potassium Chloride 20 MEQ TAB PO SCH (06:45)
[2022-08-12] MEDS ORDERED: Enoxaparin Sodium 40 MG/0.4 ML SYRINGE SC SCH (09:00)
[2022-08-12] MEDS ORDERED: Ferrous Sulfate 325 MG TAB PO SCH (09:00)
[2022-08-12] MEDS: Acetaminophen 325 MG TAB PO PRN (14:26)
[2022-08-12 15:26] VITALS: BP 134/60; TEMP 98.8
== END 2022-08-12 18:15 | disposition home or self-care (01) ==
LOC: ERS 15:13 → 2SW 18:29
PROVIDERS: ADMIT Student in an Organized Health Care Education/Training Program; ATTEND Student in an Organized Health Care Education/Training Program
DX: R07.89 Other chest pain (principal); I16.0 Hypertensive urgency; D64.9 Anemia, unspecified; E87.6 Hypokalemia; U07.1 COVID-19; R00.1 Bradycardia, unspecified; G89.29 Other chronic pain; M54.9 Dorsalgia, unspecified; E78.5 Hyperlipidemia, unspecified; K21.9 Gastro-esophageal reflux disease without esophagitis; M19.90 Unspecified osteoarthritis, unspecified site; E11.9 Type 2 diabetes mellitus without complications; I25.2 Old myocardial infarction; Z86.73 Personal history of transient ischemic attack (TIA), and cerebral infarction without residual deficits; Z87.891 Personal history of nicotine dependence; Z79.899 Other long term (current) drug therapy; Z95.0 Presence of cardiac pacemaker
CPT/HCPCS: 0240U; 71045; 80048; 80053; 82728; 83540; 83550; 83690; 83880; 84484 ×2; 85025 ×2; 93005; 96372; 99285; G0378 ×3; 36415; J1650

== ENCOUNTER 2022-08-14 07:47 | Inpatient (IN) | payer OTHER, MEDICARE ==
[2022-08-14] MEDS ORDERED: Ketorolac Tromethamine 30 MG/ML VIAL ONE (08:45)
[2022-08-14] MEDS ORDERED: Ondansetron PF 4 MG/2 ML Vial ONE (08:45)
[2022-08-14] MEDS ORDERED: Morphine 4 MG/ML VIAL ONE (08:45)
[2022-08-14 08:52] LABS: #Eosinphils 0.1 thou/uL (0.0-0.7); #Lymphocytes 2.8 thou/uL (1.20-3.40); #Monocytes 0.7 thou/uL (0.11-0.59); #Neutrophils 2.3 thou/uL (1.40-6.50); %Basophils 0.7 % (0.0-1.0); %Monocytes 11.9 % (0.0-10.0); %Neutrophils 38.4 % (42.0-75.0); Hemoglobin 9.2 g/dL (12.0-16.0); Mean Corpuscular HGB CONC 30.5 g/dL (32.0-36.0); Mean Corpuscular Hemoglobin 26.6 pg (27.0-31.0); Mean Platelet Volume 7.6 fL (7.4-10.4); Platelet Count 421 10x3/uL (130-400); RBC Distribution Width 15.8 % (11.5-14.5); Red Blood Cell (RBC) Count 3.46 mill/uL (4.20-5.40)
[2022-08-14 09:11] LABS: ALT (SGPT) 10 U/L (8-55); AST (SGOT) 18 U/L (5-34); Albumin 3.2 g/dL (3.4-4.8); Alkaline Phosphatase 53 U/L (40-110); Anion Gap 9 mmol/L (10-20); BUN (Urea Nitrogen) 15 mg/dL (9.8-20.1); Bilirubin, Total 0.2 mg/dL (0.2-1.2); Calc. Creatinine Clearance 0 mL/min (70-130); Calcium 8.8 mg/dL (7.8-10.44); Carbon Dioxide 20 mmol/L (23-31); Chloride 112 mmol/L (98-107); Estimated GFR 56; Globulin 3.3 g/dL (2.4-3.5); Glucose 85 mg/dL (80-115); Lipase 29 U/L (8-78); Magnesium 2.1 mg/dL (1.6-2.6); Potassium 3.4 mmol/L (3.5-5.1); Protein, Total 6.5 g/dL (5.8-8.1); Sodium 138 mmol/L (136-145)
[2022-08-14] MEDS ORDERED: tiZANidine HCl 4 MG TAB PO PRN (14:05)
[2022-08-14] MEDS ORDERED: Acetaminophen 325 MG TAB ONE (14:21)
[2022-08-14] MEDS: Acetaminophen 325 MG TAB PO PRN ×2 (14:23→20:32)
[2022-08-14] MEDS ORDERED: Potassium Chloride 20 MEQ TAB PO SCH (15:30)
[2022-08-14] MEDS ORDERED: Iopamidol-370 76% 500 ML 1 ML ONE (15:58)
[2022-08-14] MEDS ORDERED: Potassium Chloride 20 MEQ TAB ONE (15:58)
[2022-08-14] MEDS ORDERED: Nitroglycerin 0.4 MG TAB (25 Tab Bottle) SL SCH (19:15)
[2022-08-14 19:46] LABS: Troponin I 0.012 ng/mL (< 0.028)
[2022-08-14] MEDS ORDERED: Lisinopril 5 MG TAB PO SCH (23:30)
[2022-08-15] MEDS ORDERED: Haloperidol Lactate 5 MG/ML VIAL IM SCH ×2 (02:00→03:45)
[2022-08-15] MEDS ORDERED: hydrALAZINE 10 MG TAB PO SCH (04:00)
[2022-08-15] MEDS ORDERED: Calcium Carbonate 500 MG ChewTAB PO SCH (05:30)
[2022-08-15 05:41] LABS: ALT (SGPT) 11 U/L (8-55); AST (SGOT) 18 U/L (5-34); Albumin 3.6 g/dL (3.4-4.8); Alkaline Phosphatase 61 U/L (40-110); Anion Gap 11 mmol/L (10-20); BUN (Urea Nitrogen) 14 mg/dL (9.8-20.1); Bilirubin, Total 0.3 mg/dL (0.2-1.2); Calc. Creatinine Clearance 86 mL/min (70-130); Calcium 9.2 mg/dL (7.8-10.44); Carbon Dioxide 21 mmol/L (23-31); Chloride 109 mmol/L (98-107); Estimated GFR 58; Globulin 3.7 g/dL (2.4-3.5); Glucose 88 mg/dL (80-115); Potassium 3.6 mmol/L (3.5-5.1); Protein, Total 7.3 g/dL (5.8-8.1); Sodium 137 mmol/L (136-145)
[2022-08-15 05:56] LABS: #Basophils 0.1 thou/uL (0.0-0.2); #Eosinphils 0.1 thou/uL (0.0-0.7); #Lymphocytes 2.3 thou/uL (1.20-3.40); #Monocytes 0.9 thou/uL (0.11-0.59); #Neutrophils 4.1 thou/uL (1.40-6.50); %Basophils 0.8 % (0.0-1.0); %Eosinophils 1.9 % (0.0-10.0); %Lymphocytes 30.3 % (21.0-51.0); %Monocytes 12.5 % (0.0-10.0); %Neutrophils 54.5 % (42.0-75.0); Hemoglobin 10.5 g/dL (12.0-16.0); Mean Corpuscular Hemoglobin 26.1 pg (27.0-31.0); Mean Corpuscular Volume 86.8 fl (78.0-98.0); Mean Platelet Volume 7.9 fL (7.4-10.4); Platelet Count 463 10x3/uL (130-400); RBC Distribution Width 15.8 % (11.5-14.5); Red Blood Cell (RBC) Count 4.01 mill/uL (4.20-5.40); White Blood Cell (WBC) Count 7.4 10x3/uL (4.8-10.8)
[2022-08-15] MEDS ORDERED: Ferrous Sulfate 325 MG TAB PO SCH (07:30)
[2022-08-15] MEDS ORDERED: Lisinopril 5 MG TAB PO SCH (11:30)
[2022-08-15] MEDS ORDERED: Ibuprofen 600 MG TAB PO PRN (12:02)
[2022-08-15 12:22] VITALS: BMI 30.4
[2022-08-15] MEDS: Acetaminophen 500 MG TAB PO SCH ×2 (14:36→21:01)
[2022-08-15] MEDS ORDERED: Lisinopril 10 MG TAB PO SCH (16:46)
[2022-08-15] MEDS ORDERED: Lisinopril 2.5 MG TAB PO SCH (21:00)
[2022-08-15] MEDS ORDERED: NIFEdipine XL 30 MG TAB PO SCH (23:00)
[2022-08-16] MEDS: Acetaminophen 500 MG TAB PO SCH ×2 (05:33→15:43)
[2022-08-16] MEDS ORDERED: NIFEdipine XL 30 MG TAB PO SCH (09:00)
[2022-08-16] MEDS ORDERED: Lisinopril 10 MG TAB PO SCH (09:00)
[2022-08-16 17:20] VITALS: BP 137/76; TEMP 98.7
[2022-08-17] MEDS ORDERED: FLU VACC QS2022-23(65YR UP)/PF 240 MCG/0.7 ML SYRINGE IM ONE (23:45)
== END 2022-08-16 16:00 | disposition home or self-care (01) | DRG 313 ==
LOC: ERS 07:47 → ERHOLD 13:05 → 2SW 18:16 → OBSVTOIN 08-15 12:32 → T4-A 08-15 18:48
PROVIDERS: ADMIT Student in an Organized Health Care Education/Training Program; ATTEND Student in an Organized Health Care Education/Training Program
PROC: 8E0ZXY6 Isolation (ICD-10-PCS; principal; 2022-08-15)
DX: R07.89 Other chest pain (principal); U07.1 COVID-19; F05 Delirium due to known physiological condition; I10 Essential (primary) hypertension; I25.10 Atherosclerotic heart disease of native coronary artery without angina pectoris; Z96.651 Presence of right artificial knee joint; H54.8 Legal blindness, as defined in USA; K21.9 Gastro-esophageal reflux disease without esophagitis; D64.9 Anemia, unspecified; G89.29 Other chronic pain; M54.9 Dorsalgia, unspecified; E87.6 Hypokalemia; F03.90 Unspecified dementia, unspecified severity, without behavioral disturbance, psychotic disturbance, mood disturbance, and anxiety; Z78.1 Physical restraint status; Z86.73 Personal history of transient ischemic attack (TIA), and cerebral infarction without residual deficits; Z79.899 Other long term (current) drug therapy; Z95.0 Presence of cardiac pacemaker; Z98.890 Other specified postprocedural states; Z98.51 Tubal ligation status; Z82.49 Family history of ischemic heart disease and other diseases of the circulatory system; Z87.891 Personal history of nicotine dependence
CPT/HCPCS: 36415; 36416; 71045; 71275; 80048; 80053; 82728; 83540; 83550; 83690; 83735; 83880; 84484; 85025; 85379; 93005; 93010; 96372; 96374; 96375; G0378; J1630; J1650; J1885; J2270; J2405; Q9967

== ENCOUNTER 2023-11-27 01:20 | Inpatient (IN) | payer OTHER ==
[2023-11-27 02:04] LABS: #Basophils 0.03 10x3/uL (0.0-0.2); %Basophils 0.5 % (0.0-1.0); %Lymphocytes 28.3 % (21.0-51.0); %Monocytes 9.3 % (0.0-10.0); %Neutrophils 60.6 % (42.0-75.0); Hematocrit 27.2 % (36.0-47.0); Hemoglobin 7.6 g/dL (12.0-16.0); Mean Corpuscular HGB CONC 27.9 g/dL (32.0-36.0); Mean Corpuscular Hemoglobin 22.4 pg (27.0-31.0); Mean Corpuscular Volume 80.2 fL (78.0-98.0); Mean Platelet Volume 9.4 fL (7.4-10.4); Platelet Count 392 10x3/uL (130-400); Red Blood Cell (RBC) Count 3.39 mill/uL (4.20-5.40)
[2023-11-27 02:11] LABS: Actual Bicarbonate (HCO3v) 17.5 mEq/L (22-28); Base Excess -5.7 mEq/L (-2.0 to +3.0); Calcium, Ionized (venous) 1.05 mmol/L (1.16-1.32); Chloride (VBG) 106 mmol/L (98-106); Hematocrit-VBG 24 % (36.0-47.0); Hemoglobin (Hb) 8.3 g/dL (11.7-16.1); Potassium (VBG) 5.06 mmol/L (3.70-5.30); Sodium 134 mmol/L (133-146); pH (venous) 7.444 (7.32-7.43)
[2023-11-27 02:25] LABS: Troponin I Less than 0.010 ng/mL (< 0.028)
[2023-11-27 02:26] LABS: ALT (SGPT) 10 U/L (8-55); AST (SGOT) 16 U/L (5-34); Albumin 3.3 g/dL (3.4-4.8); Alkaline Phosphatase 45 U/L (40-110); Anion Gap 12 mmol/L (10-20); Anisocytosis SLIGHT = 6-15 cells HPF (0-5); BUN (Urea Nitrogen) 17 mg/dL (9.8-20.1); Bilirubin, Total 0.2 mg/dL (0.2-1.2); Calc. Creatinine Clearance 0 mL/min (70-130); Carbon Dioxide 22 mmol/L (23-31); Chloride 107 mmol/L (98-107); Estimated GFR 33; Globulin 3.3 g/dL (2.4-3.5); Glucose 137 mg/dL (80-115); Hypochromia SLIGHT = 6-15 cells HPF (0-5); Lipase 24 U/L (8-78); Platelet Adequacy Comment Platelets Normal; Potassium 4.3 mmol/L (3.5-5.1); Protein, Total 6.6 g/dL (5.8-8.1); Sodium 137 mmol/L (136-145)
[2023-11-27 03:49] LABS: Bacteria/HPF 2+ HPF (None Seen); Bilirubin Negative (Negative); Blood, Urine Negative (Negative); CAUTI Indications for Culture Alt mental st,lethar; Clarity Turbid (Clear); Glucose, Urine (Dipstick) Normal (Negative); Ketone, Urine Negative (Negative); Leukocyte 500 Leu/uL (Negative); Nitrite 1+ (Negative); Protein, Urine (Dipstick) 20 mg/dL (Neg-Trace); RBC/HPF 0-3 HPF (0-3); Specific Gravity, Urine 1.016 (1.002-1.036); Squamous Epithelial 0-3 HPF (0-3); Urobilinogen Normal mg/dL (Less than 2); WBC/HPF Greater than 50 HPF (0-3); pH, Urine 6.5 (5.0-9.0)
[2023-11-27 03:51] LABS: Influenza A by NAA Not Detected (NotDetected); Influenza B by NAA Not Detected (NotDetected); SARS-CoV-2 NAA Rapid Test Not Detected (NotDetected)
[2023-11-27 03:56] LABS: Amphetamine Not Detected (NotDetected); Barbiturates Screen Not Detected (NotDetected); Benzodiazepine Screen Not Detected (NotDetected); Cocaine Metabolite Screen Not Detected (NotDetected); Methadone Not Detected (NotDetected); Methamphetamine Not Detected (NotDetected); Opiate Screen Detected (NotDetected); Oxycodone Screen Not Detected (NotDetected); Phencyclidine (PCP) Not Detected (NotDetected); THC/Cannabinoid Screen Not Detected (NotDetected); Tricyclic Screen Not Detected (NotDetected)
[2023-11-27 04:15] LABS: Urine Culture Reflex Yes Yes
[2023-11-27] MEDS ORDERED: cefTRIAXone (ROCEPHIN) 1 GM VIAL ONE (04:37)
[2023-11-27] MEDS ORDERED: Sodium Chloride 0.9% 100 ML ONE (04:37)
[2023-11-27 04:43] LABS: Acetaminophen Less than 10 mcg/mL (10.0-30.0); Alcohol Less than 10.0 mg/dL (Less than 10); Salicylate Less than 8.0 mg/dL (15.0-30.0)
[2023-11-27 05:58] LABS: #Basophils 0.04 10x3/uL (0.0-0.2); %Basophils 0.6 % (0.0-1.0); %Eosinophils 1.3 % (0.0-10.0); %Lymphocytes 29.9 % (21.0-51.0); %Monocytes 9.5 % (0.0-10.0); %Neutrophils 58.6 % (42.0-75.0); Hematocrit 28.7 % (36.0-47.0); Hemoglobin 8.1 g/dL (12.0-16.0); Mean Corpuscular HGB CONC 28.2 g/dL (32.0-36.0); Mean Corpuscular Hemoglobin 23.1 pg (27.0-31.0); Mean Corpuscular Volume 81.8 fL (78.0-98.0); Mean Platelet Volume 9.2 fL (7.4-10.4); Platelet Count 382 10x3/uL (130-400); RBC Distribution Width 18.2 % (11.5-14.5); Red Blood Cell (RBC) Count 3.51 mill/uL (4.20-5.40)
[2023-11-27 06:16] LABS: Anion Gap 14 mmol/L (10-20); BUN (Urea Nitrogen) 17 mg/dL (9.8-20.1); Calc. Creatinine Clearance 0 mL/min (70-130); Carbon Dioxide 20 mmol/L (23-31); Chloride 109 mmol/L (98-107); Estimated GFR 39; Glucose 103 mg/dL (80-115); Iron 16 ug/dL (50-170); Iron Binding Capacity, Total 368 mcg/dL (265-497); Potassium 4.5 mmol/L (3.5-5.1); Sodium 138 mmol/L (136-145)
[2023-11-27 06:18] LABS: Iron 19 ug/dL (50-170); Iron Binding Capacity, Total 360 mcg/dL (265-497)
[2023-11-27 06:54] LABS: Hypochromia MODERATE=16-30 cells HPF (0-5); Platelet Adequacy Comment Platelets Normal; Polychromasia SLIGHT = 2-3 cells HPF (0-2)
[2023-11-27 08:26] VITALS: BMI 27.9
[2023-11-27] MEDS: Famotidine 20 MG TAB PO SCH (09:24)
[2023-11-27] MEDS: Acetaminophen 325 MG TAB PO PRN (09:24)
[2023-11-27] MEDS: Enoxaparin 40 MG (0.4 mL) SYRINGE SC SCH (09:24)
[2023-11-27] MEDS: Sodium Chloride 0.9% 1,000 ML IV SCH (09:25)
[2023-11-27] MEDS: Ketorolac Tromethamine 30 MG (1 mL) VIAL IVP SCH (15:37)
[2023-11-27] MEDS: diphenhydrAMINE 25 MG CAP PO PRN (21:53)
[2023-11-28] MEDS: NIFEdipine XL 60 MG ER.TAB PO SCH ×2 (01:07→08:41)
[2023-11-28 01:31] LABS: #Basophils 0.04 10x3/uL (0.0-0.2); %Basophils 0.7 % (0.0-1.0); %Eosinophils 1.5 % (0.0-10.0); %Lymphocytes 28.1 % (21.0-51.0); %Neutrophils 58.4 % (42.0-75.0); Hematocrit 25.9 % (36.0-47.0); Hemoglobin 7.4 g/dL (12.0-16.0); Mean Corpuscular HGB CONC 28.6 g/dL (32.0-36.0); Mean Corpuscular Volume 80.4 fL (78.0-98.0); Mean Platelet Volume 9.1 fL (7.4-10.4); Platelet Count 361 10x3/uL (130-400); RBC Distribution Width 17.9 % (11.5-14.5); Red Blood Cell (RBC) Count 3.22 mill/uL (4.20-5.40)
[2023-11-28 01:41] LABS: Troponin I Less than 0.010 ng/mL (< 0.028)
[2023-11-28 01:55] LABS: Anisocytosis SLIGHT = 6-15 cells HPF (0-5); Hypochromia SLIGHT = 6-15 cells HPF (0-5); Macrocytosis SLIGHT = 6-15 cells HPF (0-5); Ovalocytes SLIGHT = 2-5 cells HPF (0-1); Platelet Adequacy Comment Platelets Normal; Poikilocytosis SLIGHT = 6-15 cells HPF (0-5); Polychromasia SLIGHT = 2-3 cells HPF (0-2); Target Cells SLIGHT = 2-5 cells HPF (0-1); Tear Drops SLIGHT = 2-5 cells HPF (0-1)
[2023-11-28 02:19] LABS: Chloride 111 mmol/L (98-107); Potassium 4.1 mmol/L (3.5-5.1); Sodium 136 mmol/L (136-145)
[2023-11-28 02:20] LABS: Calcium 8.7 mg/dL (7.8-10.44); Glucose 106 mg/dL (80-115)
[2023-11-28 02:22] LABS: Anion Gap 12 mmol/L (10-20); Carbon Dioxide 17 mmol/L (23-31)
[2023-11-28 02:24] LABS: BUN (Urea Nitrogen) 19 mg/dL (9.8-20.1); Calc. Creatinine Clearance 59 mL/min (70-130); Estimated GFR 58
[2023-11-28] MEDS: cefTRIAXone\\ROCEPHIN 1 GM in Sodium Chloride 0.9% 100 ML IVPB SCH (05:12)
[2023-11-28] MEDS: Losartan 25 MG TAB PO SCH (08:41)
[2023-11-28] MEDS: Acetaminophen/Codeine 30-300mg Tablet PO PRN (10:30)
[2023-11-28] MEDS: Ondansetron PF 4 MG/2 ML Vial IVP PRN (12:29)
[2023-11-29 08:26] VITALS: BP 153/79
[2023-11-29 08:31] VITALS: TEMP 98.4
[2023-11-29] MEDS: Acetaminophen/Codeine 30-300mg Tablet PO SCH (09:28)
== END 2023-11-29 12:10 | disposition home or self-care (01) | DRG 689 ==
LOC: ERS 01:20 → T4-B 05:40 → OBSVTOIN 11-28 15:52
PROVIDERS: ADMIT Student in an Organized Health Care Education/Training Program; ATTEND Internal Medicine
DX: N39.0 Urinary tract infection, site not specified (principal); G93.41 Metabolic encephalopathy; N17.9 Acute kidney failure, unspecified; H54.7 Unspecified visual loss; G47.00 Insomnia, unspecified; K21.9 Gastro-esophageal reflux disease without esophagitis; M19.90 Unspecified osteoarthritis, unspecified site; H40.9 Unspecified glaucoma; E11.22 Type 2 diabetes mellitus with diabetic chronic kidney disease; I12.9 Hypertensive chronic kidney disease with stage 1 through stage 4 chronic kidney disease, or unspecified chronic kidney disease; N18.30 Chronic kidney disease, stage 3 unspecified; D50.9 Iron deficiency anemia, unspecified; F32.A Depression, unspecified; I25.2 Old myocardial infarction; Z86.73 Personal history of transient ischemic attack (TIA), and cerebral infarction without residual deficits; Z95.0 Presence of cardiac pacemaker; Z79.899 Other long term (current) drug therapy
CPT/HCPCS: 36415; 36416; 51701; 70450; 71045; 80048; 80053; 80306; 80307; 81001; 82728; 82805; 83540; 83550; 83605; 83690; 83880; 84484; 85025; 87040; 87077; 87086; 87186; 93005; 96365; 96375; 96376; G0378; J0696; J1650; J1885; J2405; J3490; J7050

== ENCOUNTER 2025-08-20 14:07 | Inpatient (IN) | payer MEDICARE, OTHER ==
[2025-08-20] MEDS ORDERED: Ondansetron PF 4 MG/2 ML Vial ONE (16:12)
[2025-08-20 17:00] LABS: #Basophils 0.03 10x3/uL (0.0-0.2); #Eosinophils 0.18 10x3/uL (0.0-0.7); #Monocytes 0.56 10x3/uL (0.11-0.59); #Neutrophils 2.92 10x3/uL (1.40-6.50); %Basophils 0.5 % (0.0-1.0); %Eosinophils 3.1 % (0.0-10.0); %Lymphocytes 35.7 % (21.0-51.0); %Monocytes 9.7 % (0.0-10.0); %Neutrophils 50.8 % (42.0-75.0); Hematocrit 23.9 % (36.0-47.0); Hemoglobin 6.8 g/dL (12.0-16.0); Mean Corpuscular Hemoglobin 21.9 pg (27.0-31.0); Mean Corpuscular Volume 77.1 fL (78.0-98.0); Platelet Count 309 10x3/uL (130-400); Red Blood Cell (RBC) Count 3.10 mill/uL (4.20-5.40); White Blood Cell (WBC) Count 5.75 10x3/uL (4.8-10.8)
[2025-08-20 17:15] LABS: ALT (SGPT) 13 U/L (Less than 34); AST (SGOT) 22 U/L (11-34); Albumin 3.0 g/dL (3.1-4.5); Alkaline Phosphatase 59 U/L (40-110); Anion Gap 15 mmol/L (10-20); BUN (Urea Nitrogen) 16 mg/dL (9.8-20.1); Bilirubin, Total 0.2 mg/dL (0.3-1.2); Calc. Creatinine Clearance 0 mL/min (70-130); Calcium 8.6 mg/dL (7.8-10.44); Carbon Dioxide 20 mmol/L (23-31); Chloride 108 mmol/L (98-107); Globulin 3.5 g/dL (2.4-3.5); Glucose 90 mg/dL (83-110); Potassium 3.7 mmol/L (3.5-5.1); Sodium 139 mmol/L (136-145)
[2025-08-20 18:47] LABS: #Basophils 0.03 10x3/uL (0.0-0.2); #Eosinophils 0.20 10x3/uL (0.0-0.7); #Monocytes 0.60 10x3/uL (0.11-0.59); #Neutrophils 3.01 10x3/uL (1.40-6.50); %Basophils 0.5 % (0.0-1.0); %Eosinophils 3.4 % (0.0-10.0); %Lymphocytes 35.4 % (21.0-51.0); %Monocytes 10.1 % (0.0-10.0); %Neutrophils 50.4 % (42.0-75.0); Hematocrit 24.3 % (36.0-47.0); Hemoglobin 7.0 g/dL (12.0-16.0); Mean Corpuscular Hemoglobin 22.2 pg (27.0-31.0); Mean Corpuscular Volume 77.1 fL (78.0-98.0); Platelet Count 349 10x3/uL (130-400); Red Blood Cell (RBC) Count 3.15 mill/uL (4.20-5.40); White Blood Cell (WBC) Count 5.96 10x3/uL (4.8-10.8)
[2025-08-20] MEDS ORDERED: diphenhydrAMINE 50 MG/ML VIAL ONE (22:38)
[2025-08-20] MEDS ORDERED: HYDROmorphone 0.5 MG/0.5 ML SYRINGE ONE (22:39)
[2025-08-21] MEDS ORDERED: Guaifenesin DM 100-10/5 ML UDCUP PO PRN (03:04)
[2025-08-21] MEDS ORDERED: Ondansetron PF 4 MG/2 ML Vial IVP PRN (03:04)
[2025-08-21] MEDS ORDERED: Calcium Carbonate 500 MG ChewTAB PO PRN (03:04)
[2025-08-21] MEDS ORDERED: Senokot S 8.6-50 MG TAB PO PRN (03:04)
[2025-08-21] MEDS ORDERED: diphenhydrAMINE 50 MG/ML VIAL IVP PRN (03:07)
[2025-08-21] MEDS ORDERED: Electrolyte Replacement Protocol 1 EACH FS SCH (03:15)
[2025-08-21] MEDS ORDERED: Magnesium Sulfate In Water 4 GM in Premix 1 BAG IVPB PRN (03:30)
[2025-08-21] MEDS ORDERED: Potassium Chloride 20 MEQ in Premix 1 BAG IVPB PRN (03:30)
[2025-08-21] MEDS ORDERED: PHOS-NAK 1 PKT PACK PO PRN (03:30)
[2025-08-21 07:47] LABS: Iron 12 ug/dL (50-170); Iron Binding Capacity, Total 379 mcg/dL (265-497)
[2025-08-21 07:49] LABS: ALT (SGPT) 13 U/L (Less than 34); AST (SGOT) 20 U/L (11-34); Albumin 3.1 g/dL (3.1-4.5); Alkaline Phosphatase 62 U/L (40-110); Anion Gap 12 mmol/L (10-20); BUN (Urea Nitrogen) 16 mg/dL (9.8-20.1); Bilirubin, Total 0.2 mg/dL (0.3-1.2); Calc. Creatinine Clearance 0 mL/min (70-130); Calcium 8.6 mg/dL (7.8-10.44); Carbon Dioxide 20 mmol/L (23-31); Chloride 110 mmol/L (98-107); Globulin 3.7 g/dL (2.4-3.5); Glucose 112 mg/dL (83-110); Magnesium 2.2 mg/dL (1.6-2.6); Potassium 4.5 mmol/L (3.5-5.1); Sodium 137 mmol/L (136-145)
[2025-08-21 07:59] LABS: Cardiac Risk 2.3 (Less than 4.5); Cholesterol 156 mg/dl (< 200 Desired); HDL Cholesterol 67 mg/dL (>60 Neg Risk); LDL Cholesterol, Calculated 73 mg/dL; Triglycerides 78 mg/dL (Less than 150)
[2025-08-21 08:03] LABS: #Basophils Less than 0.03 10x3/uL (0.0-0.2); #Eosinophils 0.03 10x3/uL (0.0-0.7); #Monocytes 0.12 10x3/uL (0.11-0.59); #Neutrophils 2.96 10x3/uL (1.40-6.50); %Basophils 0.5 % (0.0-1.0); %Eosinophils 0.8 % (0.0-10.0); %Lymphocytes 17.8 % (21.0-51.0); %Monocytes 3.1 % (0.0-10.0); %Neutrophils 77.3 % (42.0-75.0); Hematocrit 28.6 % (36.0-47.0); Hemoglobin 7.9 g/dL (12.0-16.0); Mean Corpuscular Hemoglobin 22.3 pg (27.0-31.0); Mean Corpuscular Volume 80.6 fL (78.0-98.0); Platelet Count 331 10x3/uL (130-400); Red Blood Cell (RBC) Count 3.55 mill/uL (4.20-5.40); White Blood Cell (WBC) Count 3.83 10x3/uL (4.8-10.8)
[2025-08-21 08:15] LABS: Ferritin 9.01 ng/mL (10-291); Vitamin B12 496.0 pg/mL (211-911)
[2025-08-21] MEDS: Metoprolol Succinate XL 25 MG ER.TAB PO SCH (09:40)
[2025-08-21] MEDS: Lisinopril 10 MG TAB PO SCH (09:40)
[2025-08-21] MEDS: Sodium Ferric Gluconate 250 MG in Sodium Chloride 0.9% 250 ML 250 ML IVPB SCH (09:41)
[2025-08-21 09:42] LABS: Anisocytosis SLIGHT = 6-15 cells HPF (0-5); Platelet Adequacy Comment Platelets Normal; Poikilocytosis SLIGHT = 6-15 cells HPF (0-5); Polychromasia SLIGHT = 2-3 cells HPF (0-2)
[2025-08-21] MEDS: Aspirin 81 mg Enteric Coated Tablet PO SCH (09:44)
[2025-08-21] MEDS: Acetaminophen/Codeine 30-300mg Tablet PO PRN (15:24)
[2025-08-21 16:49] VITALS: BMI 30.2
[2025-08-21] MEDS: Melatonin 3 MG TAB PO PRN (23:45)
[2025-08-22] MEDS: Acetaminophen 325 MG TAB PO PRN (05:29)
[2025-08-22 07:40] LABS: Hematocrit 26.2 % (36.0-47.0); Hemoglobin 7.3 g/dL (12.0-16.0); Mean Corpuscular Hemoglobin 22.3 pg (27.0-31.0); Mean Corpuscular Volume 80.1 fL (78.0-98.0); Platelet Count 291 10x3/uL (130-400); Red Blood Cell (RBC) Count 3.27 mill/uL (4.20-5.40); White Blood Cell (WBC) Count 12.25 10x3/uL (4.8-10.8)
[2025-08-22 07:56] LABS: Anion Gap 9 mmol/L (10-20); BUN (Urea Nitrogen) 18 mg/dL (9.8-20.1); Calc. Creatinine Clearance 58 mL/min (70-130); Calcium 8.8 mg/dL (7.8-10.44); Carbon Dioxide 22 mmol/L (23-31); Chloride 108 mmol/L (98-107); Glucose 85 mg/dL (83-110); Magnesium 2.2 mg/dL (1.6-2.6); Potassium 4.0 mmol/L (3.5-5.1); Sodium 135 mmol/L (136-145)
[2025-08-22] MEDS ORDERED: Aspirin 81 mg Enteric Coated Tablet PO SCH (09:00)
[2025-08-22] MEDS: GoLYTELY 4,000 ml Bottle PO SCH (13:23)
[2025-08-23 04:26] LABS: #Basophils 0.03 10x3/uL (0.0-0.2); #Eosinophils 0.15 10x3/uL (0.0-0.7); #Monocytes 0.73 10x3/uL (0.11-0.59); #Neutrophils 3.85 10x3/uL (1.40-6.50); %Basophils 0.5 % (0.0-1.0); %Eosinophils 2.3 % (0.0-10.0); %Lymphocytes 27.7 % (21.0-51.0); %Monocytes 11.0 % (0.0-10.0); %Neutrophils 57.7 % (42.0-75.0); Hematocrit 25.3 % (36.0-47.0); Hemoglobin 7.1 g/dL (12.0-16.0); Mean Corpuscular Hemoglobin 22.5 pg (27.0-31.0); Mean Corpuscular Volume 80.3 fL (78.0-98.0); Platelet Count 265 10x3/uL (130-400); Red Blood Cell (RBC) Count 3.15 mill/uL (4.20-5.40); White Blood Cell (WBC) Count 6.65 10x3/uL (4.8-10.8)
[2025-08-23 04:41] LABS: ALT (SGPT) 15 U/L (Less than 34); AST (SGOT) 28 U/L (11-34); Albumin 2.7 g/dL (3.1-4.5); Alkaline Phosphatase 53 U/L (40-110); Anion Gap 12 mmol/L (10-20); BUN (Urea Nitrogen) 14 mg/dL (9.8-20.1); Bilirubin, Total 0.2 mg/dL (0.3-1.2); Calc. Creatinine Clearance 55 mL/min (70-130); Calcium 8.5 mg/dL (7.8-10.44); Carbon Dioxide 24 mmol/L (23-31); Chloride 111 mmol/L (98-107); Globulin 3.3 g/dL (2.4-3.5); Glucose 75 mg/dL (83-110); Magnesium 2.2 mg/dL (1.6-2.6); Potassium 4.2 mmol/L (3.5-5.1); Sodium 143 mmol/L (136-145)
[2025-08-23] MEDS: Pantoprazole 40 MG DR.TAB PO SCH (13:57)
[2025-08-23 23:12] LABS: Hematocrit 28.2 % (36.0-47.0); Hemoglobin 8.3 g/dL (12.0-16.0)
[2025-08-24 04:35] LABS: #Basophils 0.03 10x3/uL (0.0-0.2); #Eosinophils 0.08 10x3/uL (0.0-0.7); #Monocytes 0.84 10x3/uL (0.11-0.59); #Neutrophils 3.96 10x3/uL (1.40-6.50); %Basophils 0.5 % (0.0-1.0); %Eosinophils 1.3 % (0.0-10.0); %Lymphocytes 19.0 % (21.0-51.0); %Monocytes 13.7 % (0.0-10.0); %Neutrophils 64.8 % (42.0-75.0); Hematocrit 28.4 % (36.0-47.0); Hemoglobin 8.4 g/dL (12.0-16.0); Mean Corpuscular Hemoglobin 23.6 pg (27.0-31.0); Mean Corpuscular Volume 79.8 fL (78.0-98.0); Platelet Count 281 10x3/uL (130-400); Red Blood Cell (RBC) Count 3.56 mill/uL (4.20-5.40); White Blood Cell (WBC) Count 6.11 10x3/uL (4.8-10.8)
[2025-08-24 04:49] LABS: ALT (SGPT) 15 U/L (Less than 34); AST (SGOT) 32 U/L (11-34); Albumin 2.8 g/dL (3.1-4.5); Alkaline Phosphatase 58 U/L (40-110); Anion Gap 15 mmol/L (10-20); BUN (Urea Nitrogen) 14 mg/dL (9.8-20.1); Bilirubin, Total 0.2 mg/dL (0.3-1.2); Calc. Creatinine Clearance 48 mL/min (70-130); Calcium 8.7 mg/dL (7.8-10.44); Carbon Dioxide 22 mmol/L (23-31); Chloride 109 mmol/L (98-107); Globulin 3.5 g/dL (2.4-3.5); Glucose 102 mg/dL (83-110); Magnesium 2.3 mg/dL (1.6-2.6); Potassium 3.9 mmol/L (3.5-5.1); Sodium 142 mmol/L (136-145)
[2025-08-24 07:37] VITALS: TEMP 99.4
[2025-08-24] MEDS: NIFEdipine XL 60 MG ER.TAB PO SCH (10:49)
[2025-08-24 11:47] VITALS: BP 145/98
[2025-08-25] MEDS ORDERED: NIFEdipine XL 60 MG ER.TAB PO SCH (09:00)
== END 2025-08-24 11:49 | disposition home or self-care (01) | DRG 812 ==
LOC: ERS 14:07 → 2NO 08-21 03:07 → OBSVTOIN 08-21 08:02
PROVIDERS: ADMIT Internal Medicine; ATTEND Internal Medicine
PROC: 30233N1 Transfusion of Nonautologous Red Blood Cells into Peripheral Vein, Percutaneous Approach (ICD-10-PCS; principal; 2025-08-20)
DX: D50.9 Iron deficiency anemia, unspecified (principal); I25.10 Atherosclerotic heart disease of native coronary artery without angina pectoris; K21.9 Gastro-esophageal reflux disease without esophagitis; I12.9 Hypertensive chronic kidney disease with stage 1 through stage 4 chronic kidney disease, or unspecified chronic kidney disease; F32.A Depression, unspecified; G56.00 Carpal tunnel syndrome, unspecified upper limb; M19.90 Unspecified osteoarthritis, unspecified site; Z96.642 Presence of left artificial hip joint; Z86.73 Personal history of transient ischemic attack (TIA), and cerebral infarction without residual deficits; Z98.51 Tubal ligation status; Z79.899 Other long term (current) drug therapy; I25.2 Old myocardial infarction; Z83.3 Family history of diabetes mellitus; Z87.891 Personal history of nicotine dependence
CPT/HCPCS: 36415; 36416; 36430; 71045; 71275; 80048; 80053; 80061; 82607; 82728; 83036; 83540; 83550; 83690; 83735; 84100; 84484; 85025; 85027; 86850; 86900; 86901; 93005; 93306; 94760; 96374; 96375; 96376; G0378; J1171; J1200; J2270; J2272; J2405; J2916; J2919; J7050; P9016